=== PATIENT | female | born 1945 | race Caucasian/White ===

== ENCOUNTER 2020-10-30 14:21 | Outpatient (CLI) | payer MEDICARE, SELFPAY ==
--- NOTE | ~2020-10-30 | US_ITS ---
EXAMINATION: US art doppler w erick HERNANDEZ EXAM DATE: 10/30/2020 15:09 INDICATION: Peripheral arterial disease. Peripheral vascular disease. TECHNIQUE: Segmental pressures and plethysmographic and Doppler waveforms of the brachial and lower e xtremity arteries were obtained. Bilateral FINDINGS: Right and left brachial artery pressures of 155 mm Hg and 178 mm Hg, respectively (normal difference <= 30 mmHg). Doppler waveform in the right brachial artery is monophasic compared to the biphasic con tralateral side. Possible right subclavian artery stenosis. RIGHT LEG: The ankle-brachial index (DIANE) is 1.01 (normal >= 0.9-1). The great toe-brachial index (TBI) is 0.81 (normal >= 0.65). The lower extremity ratios, segmental pressure gradients as follows; Proximal superficial femoral artery:- Could not obtain ( mmHg). Distal superficial femoral artery: ----- 1.14 (203 mmHg). Popliteal: 1.11 (198 mmHg). Dorsalis pedis: 0.90 (160 mmHg). Posterior tibial: 1.01 (180 mmHg). (Normal gradients <= 20-30 mmHg between adjacent levels on the same leg or the same levels on the two legs). Arterial waveforms are biphasic. LEFT LEG: The ankle-brachial index (DIANE) is 1.13 (normal >= 0.9-1). The great toe-brachial index (TBI) is 0.77 (normal >= 0.65). The lower extremity ratios, segmental pressure gradients as follows; Proximal superficial femoral artery:- Could not obtain ( mmHg). Distal superficial femoral artery: ----- 1.17 (209 mmHg). Popliteal: Could not obtain ( mmHg). Dorsalis pedis: 0.90 (161 mmHg). Posterior tibial: 1.13 (201 mmHg). (Normal gradients <= 20-30 mmHg between adjacent levels on the same leg or the same levels on the two legs). Arterial waveforms are biphasic. IMPRESSION: 1. Right ankle-brachial index 1.01, normal. 2. Left ankle-brachial index 1.13, normal. 3. Possible right subclavian arterial stenosis. 4. High blood pressure. 5. Segmental pressures as above Reviewed, dictated and finalized at location B. HER DRAMATICS
== END 2020-10-30 14:22 | disposition home or self-care (01) ==
PROVIDERS: PCP Family Medicine; Visit Provider Family Medicine
DX: I73.9 Peripheral vascular disease, unspecified (principal)
CPT/HCPCS: 93923

== ENCOUNTER → 2020-12-10 12:40 | Outpatient (CLI) | payer MEDICARE, SELFPAY ==
--- NOTE | ~2020-12-10 | MM_ITS ---
EXAMINATION: MM screening [facility] BI w pratibha HISTORY: Screening TECHNIQUE: Craniocaudal and mediolateral oblique 3-D tomosynthesis images were obtained and synthetic 2-D images were generated. CAD analysis was submitted and interpreted. COMPARISON: Comparison to multiple prior studies sequentially, with oldest reviewed study dated 08/27. BREAST PARENCHYMAL COMPOSITION: The breasts are extremely dense, which lowers the sensitivity of mamm ography. FINDINGS: There is no evidence of suspicious mass, calcification, or architectural distortion to sugg est malignancy in either breast. There has been no suspicious interval change. IMPRESSION: 1. No mammographic evidence of malignancy. 2. Recommend routine screening mammography in one year. BI-RADS Category 1: Negative Reviewed, dictated and finalized at location A.
--- NOTE | ~2020-12-10 | DEXA_ITS ---
Bone Density Report Name: Yola Benavides Age: 75 Sex: Female Ethnicity: White Date of : 1945 Indication: postmenopausal; screening for osteoporosis; parental hip fracture; height loss; hysterectomy; Referring Provider: Jossue Atkinson Study: Bone densitometry was performed. Exam Date: December 10, 2020 Accession number: [id number] Bone Density: Region BMD T-score Z-score Classification AP Spine (L1-L4) 0.883 -1.5 1.0 Osteopenia Femoral Neck (Left) 0.573 -2.5 -0.3 Osteoporosis Total Hip (Left) 0.583 -2.9 -1.1 Osteoporosis Femoral Neck (Right) 0.913 0.6 2.7 Normal Total Hip (Right) 0.598 -2.8 -0.9 Osteoporosis Total Hip Mean 0.591 -2.9 -1.0 Osteoporosis World Health Organization criteria for BMD impression classify patients as: Normal (T-score at or above -1.0), Osteopenia (T-score between -1.0 and -2.5), or Osteoporosis (T-score at or below -2.5). 10-year Fracture Risk: FRAX not reported because: Some T-score for Spine Total or Hip Total or Femoral Neck at or below -2.5 Clinical Information Provided by Patient: Parent has had a hip fracture Has used the following medications: Calcium Has the following medical conditions: Hysterectomy Patient maximum height was 67.2 Menopause Age: 49 Drinks caffeinated beverages Onset of menses at age 15 Number of children 0 Missed period for more than 6 months in a row Impression: The patient has osteoporosis, based on the Left Total Hip T-score. The patient has risk factors, including: parental hip fracture. Discussion: INCREASED RISK OF FRACTURE. BONE DENSITY IS UNDESIRABLY LOW AT ONE OR MORE SKELETAL SITES, CONSISTENT WITH POSTMENOPAUSAL OSTEOPOROSIS. This patient's lowest T-score meets the World Health Organization's (WHO) criteria for osteoporosis at one or more sites (T-score -2.5 or below). In untreated patients, the risk of osteoporotic fracture increases approximately two-fold for each 1.0 SD decrease in T-score. Low bone density is not the only risk factor for fracture; also consider factors such as patient's age, frailty or poor health, risk of falling, risk of injury, previous osteoporotic fracture, family history of osteoporosis, cigarette smoking, low body weight, etc. Not everyone with low bone mineral density has osteoporosis; osteomalacia and other metabolic bone disorders should also be considered. Patients who have osteoporosis should be evaluated for specific diseases and conditions (secondary causes) that may cause or contribute to bone loss. The [place] Association [employer] Clinical Endocrinologists (AACE) and National Osteoporosis Foundation (NOF) recommend pharmacologic intervention for all postmenopausal women whose T-score is in this range. The patient should follow a healthful lifestyle (good nutrition with adequate calcium and vitamin D, and ap
== END ==
PROVIDERS: PCP Family Medicine; Visit Provider Family Medicine
DX: Z12.31 Encounter for screening mammogram for malignant neoplasm of breast (principal); M81.0 Age-related osteoporosis without current pathological fracture; Z78.0 Asymptomatic menopausal state; M85.88 Other specified disorders of bone density and structure, other site
CPT/HCPCS: 77063; 77067; 77080

== ENCOUNTER 2021-10-21 13:44 | Outpatient (CLI) | payer MEDICARE, SELFPAY ==
[2021-10-21 16:35] LABS: SARS-CoV-2 RNA PCR Positive (Negative)
== END 2021-10-21 13:45 | disposition home or self-care (01) ==
LOC: CHSLAB 13:46
PROVIDERS: PCP Family Medicine; Visit Provider Family Medicine
DX: U07.1 COVID-19 (principal); R43.2 Parageusia
CPT/HCPCS: C9803; U0003; U0005

== ENCOUNTER → 2021-11-05 08:43 | Outpatient (CLI) | payer MEDICARE, SELFPAY ==
--- NOTE | ~2021-11-05 | XR_ITS ---
EXAMINATION: XR hip RT min 3V w AP pelvis EXAM DATE: 11/05/2021 08:58 INDICATION: M25.551 - Pain in right hip . RT hip pain off and on after falling 12 yrs ago. getting wo rse x 1 week. pt states her dr took an xray at time of fall but was unsure of fracture. no prior RT h ip surg. TECHNIQUE: Right hip frontal, 'frog leg' projections for interpretation. Frontal projection pelvis. There is no prior study for comparison. FINDINGS: There is moderate symmetric bilateral hip primary osteoarthritis. Small amount of regulati on femoral head surface. Probable old impacted right subcapital femoral neck fracture. There are no a cute fractures identified. Sacrum, sacroiliac joints, sacral arcuate lines are intact. IMPRESSION: Old right subcapital femoral neck fracture. Moderate bilateral hip osteoarthritis. Reviewed, dictated and finalized at location B. E MINER BLASTING
--- NOTE | ~2021-11-05 | XR_ITS ---
XR knee RT 2V DATE: 11/05/2021 10:05 INDICATION: Right knee pain TECHNIQUE: AP and lateral views COMPARISON: None FINDINGS: There is mild enthesopathy of the superior pole of the patella at the quadriceps tendon ins ertion. There is diffuse osteopenia. There is mild loss of height of medial compartment joint space and mild periarticular spurring of the medial tibial plateau. No fracture or dislocation or joint effusion, periosteal reaction or bone destruction, radiopaque int ra-articular loose body or chondrocalcinosis. IMPRESSION: Osteopenia Mild osteoarthritis at the medial compartment Reviewed, dictated and finalized at location A. BALER
== END ==
PROVIDERS: PCP Family Medicine; Visit Provider Family Medicine
DX: M85.861 Other specified disorders of bone density and structure, right lower leg (principal); M17.11 Unilateral primary osteoarthritis, right knee; M16.0 Bilateral primary osteoarthritis of hip
CPT/HCPCS: 73502; 73560

== ENCOUNTER 2022-11-19 08:19 | Outpatient (CLI) | payer MEDICARE, SELFPAY ==
[2022-11-19 20:35] LABS: Basophils Absolute Auto 0.1 K/mm3 (0.0-0.1); Basophils Percent Auto 1.2 % (0.2-1.2); Eosinophils Absolute Auto 0.4 K/mm3 (0-0.3); Hematocrit 39.3 % (37.0-47.0); Hemoglobin 12.7 g/dL (12.0-15.0); Lymphocytes Absolute Auto 1.22 K/mm3 (0.9-3.2); Lymphocytes Percent Auto 28.8 % (18.3-44.2); Mean Corpuscular HGB Conc 32.3 g/dl (32-36); Mean Corpuscular Hemoglobin 30.7 pg (26-34); Mean Corpuscular Volume 94.9 fl (80-100); Mean Platelet Volume 10.1 fl (7.4-10.4); Monocytes Absolute Auto 0.5 K/mm3 (0.1-0.6); Monocytes Percent Auto 10.6 % (2.6-8.5); Neutrophils Absolute Auto 2.1 K/mm3 (1.3-6.7); Neutrophils Percent Auto 50.4 % (45.5-73.1); Platelet Count Result 221 k/mm3 (150-375); Red Blood Count 4.14 M/mm3 (4.2-5.4); Red Cell Distribution Width 14.4 % (11.5-14.5); White Blood Count 4.2 K/mm3 (4.5-10.0)
[2022-11-19 21:33] LABS: Cholesterol 224 mg/dL (0-200); HDL Direct 66 mg/dL; Triglycerides 84 mg/dL (<150)
[2022-11-19 21:47] LABS: LDL Cholesterol Direct 102 mg/dL
[2022-11-20 04:35] LABS: Vitamin D 25 Hydroxy 23.3 ng/mL
== END 2022-11-19 08:20 | disposition home or self-care (01) ==
LOC: ANHGOSHLAB 08:21
PROVIDERS: PCP Family Medicine; Visit Provider Family Medicine
DX: E78.5 Hyperlipidemia, unspecified (principal); E53.8 Deficiency of other specified B group vitamins; E55.9 Vitamin D deficiency, unspecified; I10 Essential (primary) hypertension
CPT/HCPCS: 36415; 80061; 82306; 82607; 85025

== ENCOUNTER → 2023-01-26 13:17 | Outpatient (CLI) | payer MEDICARE, SELFPAY ==
--- NOTE | ~2023-01-26 | MM_ITS ---
EXAMINATION: MM screening [facility] BI w pratibha HISTORY: Screening mammogram TECHNIQUE: Craniocaudal and mediolateral oblique 3-D tomosynthesis images were obtained and synthetic 2-D images were generated. CAD analysis was submitted and interpreted. COMPARISON: 12/11/2019, 07/13/2017 BREAST PARENCHYMAL COMPOSITION: The breasts are extremely dense, which lowers the sensitivity of mamm ography. FINDINGS: No suspicious mass, calcification, or architectural distortion are identified in either curly ast to suggest malignancy. There has been no suspicious interval change. IMPRESSION: 1. No mammographic evidence of malignancy. 2. Recommend routine screening mammography in one year. BI-RADS Category 1: Negative Reviewed, dictated and finalized at location A.
== END ==
PROVIDERS: PCP Family Medicine; Visit Provider Family Medicine
DX: Z12.31 Encounter for screening mammogram for malignant neoplasm of breast (principal)
CPT/HCPCS: 77063; 77067

== ENCOUNTER 2023-02-13 12:37 | Emergency (ER) | payer MEDICARE, SELFPAY ==
--- NOTE | ~2023-02-13 | CT_ITS ---
EXAMINATION: CT pelvis wo con DATE: 02/13/2023 13:36 INDICATION: Pelvic pain, initial encounter TECHNIQUE: Computed tomography (CT) of the pelvis was performed without intravenous contrast. The dos e-length product (DLP) was 224.84 mGy-cm. Automated exposure control and iterative reconstruction franklyn hnique were employed. COMPARISON: None FINDINGS: There is an acute, nondisplaced transverse fracture through the S3 vertebral body which inv olves the posterior elements. There is mild presacral soft tissue swelling. No additional fracture is identified. There is mild osteoarthritis of the hips. There are no pathologically enlarged pelvic ly mph nodes. IMPRESSION: 1. Acute transverse fracture through the S3 vertebral body which appears to involve the posterior domo ments. Reviewed, dictated and finalized at location A. IMPRESSION: 1. Acute transverse fracture through the S3 vertebral body which appears to inv olve the posterior elements.
--- NOTE | ~2023-02-13 | CT_ITS ---
EXAMINATION: CT lumbar spine wo con DATE: 02/13/2023 13:36 INDICATION: Low back pain TECHNIQUE: Computed tomography (CT) of the lumbar spine was performed without intravenous contrast. T he dose-length product (DLP) was 316.52 mGy-cm. Iterative reconstruction was used. COMPARISON: None FINDINGS: There are 3 mm of anterolisthesis of L3 on L4 and L4 on L5. The vertebral body heights are maintained. There is moderate loss of intervertebral disc space height throughout the lumbar spine. N o fracture is identified. There is moderate to severe multilevel facet and uncovertebral joint osteoa rthritis. There are 20 degrees of lumbar levoscoliosis. IMPRESSION: 1. Severe lumbar spondylosis without acute findings. Reviewed, dictated and finalized at location A.
--- NOTE | ~2023-02-13 | XR_ITS ---
EXAMINATION: XR chest 2V DATE: 02/13/2023 13:52 INDICATION: Right-sided chest pain TECHNIQUE: AP and lateral views of the chest are obtained. COMPARISON: None available FINDINGS: The lungs are free of acute opacities. No pleural effusion or pneumothorax. The cardiomedia stinal silhouette is normal. There is severe thoracic spondylosis. IMPRESSION: 1. No acute cardiopulmonary abnormality. Reviewed, dictated and finalized at location A.
--- NOTE | ~2023-02-13 | XR_ITS ---
EXAM: XR hip RT 2V w AP pelvis DATE: 02/13/2023 13:52 HISTORY: right hip pain AFTER, HAS HAD HX OF PREVIOUS FALL YEARS AGO . COMPARISON: 11/05/2021. FINDINGS: Decreased mineralization. Severe osteitis pubis. Moderate degenerative change in the right hip and right SI joint. No fracture or dislocation. Old healed subcapital fracture of the right femo ral neck. IMPRESSION: No acute osseous finding in the right hip or pelvis. Reviewed, dictated and finalized at location K.
--- NOTE | ~2023-02-13 | XR_ITS ---
EXAM: XR shoulder RT min 2V DATE: 02/13/2023 13:52 HISTORY: pain to shoulder LATERAL PAIN AFTER FALL . COMPARISON: None available. FINDINGS: Decreased mineralization. No fracture or dislocation. No lytic or blastic lesion. Mild acr omioclavicular and moderate glenohumeral joint degenerative change. No erosion or periosteal change. Soft tissues within normal limits. IMPRESSION: No acute osseous finding in the right shoulder. Reviewed, dictated and finalized at location K.
[2023-02-13 12:42] VITALS: BP 147/64; PULSE 68; RESP 14; TEMP 36.8; O2SAT 100
--- NOTE | 2023-02-13 13:24 | ED.GENADULT ---
HPI - General Adult General Chief complaint: Fall Stated complaint: fall from tailgate Time Seen by Provider: 02/13/23 12:51 History of Present Illness HPI narrative: Yola Benavides is a 77 y/o female who presents with reports of a fall yesterday at around 1999. She reports she was putting a large item in the back of a pickup truck on her hands and knees. She then went to step off of the tailgate and missed her foot stool and fell landing on her bottom. She did not hit her head/ no LOC -she is not on any blood thinners. She reports she was immediately able to get up and ambulate. She complains of pain to her lower back/ coccyx area and right hip. She denies any numbness tingling to her extremities/no loss of bowel or bladder. She reports that the pain has progressively worsened and it kept her up last night she took a naproxen last night with a little relief. Related Data Home Medications Medication Instructions Recorded Confirmed naproxen sodium 220 mg tablet 220 mg PO DAILY 10/14/21 11/10/22 (Flanax (naproxen)) calcium carbonate 600 mg calcium 600 mg PO BID 11/10/22 11/10/22 (1,500 mg) tablet (Calcium) multivitamin 1 tablet PO DAILY 11/10/22 11/10/22 vit C 250 mg-vit E 200 unit-zinc 1 cap PO DAILY 11/10/22 11/10/22 ox 12.5 [id number] capsule (ICaps AREDS2) Allergies Allergy/AdvReac Type Severity Reaction Status Date / Time No Known Allergies Allergy Mild Verified 02/13/23 12:38 Review of Systems Review of Systems: Patient CONSTITUTIONAL: Denies fever, chills, or sweats. EYES: Denies visual changes, redness, or discharge. ENT: Denies rhinorrhea, congestion, sore throat, or otalgia. CARDIOVASCULAR: Denies chest pain, palpitations, or edema. RESPIRATORY: Denies cough or dyspnea. GASTROINTESTINAL: Denies abdominal pain, nausea, vomiting, or diarrhea. GENITOURINARY: Denies dysuria or hematuria. SKIN: Denies rash or itching. MUSCULOSKELETAL: Complains of lower back pain/ right hip pain/ buttock pain/ and reports of chronic right shoulder pain that might be a little worse now thinks it might of been chris NEUROLOGIC: Denies headache, numbness, dizziness, or weakness. PSYCHIATRIC: Denies anxiety or depression. [facility] Past Medical History Medical History Dyslipidemia Essential (primary) hypertension Hypothyroidism (acquired) Osteoarthritis Osteoporosis without current pathological fracture Surgical History Surgical History History of hysterectomy 2007 History of surgery on wrist 2008 Left ORIF due to fracture 2009 - Right ORIF due to fracture Social History Social History Smoking status: Never smoker Alcohol intake: current Substance use: never Substance use type: does not use Lack of Transportation: No Lack of Food: Never True Current Housing: I Have Housing Concerned About Future Housing: No Difficulty Paying Gas/Electric Bills: No Difficulty Paying for Meds: No Currently Unemployed: No Education: Master's Degree or Higher Difficulty w/ Childcare or Family Care: No Living arrangements: with family Additional living arrangements comments: Occupation/Education: retired Gender identity (if verbalized by the patient): Female Sexual Orientation (if Verbalized by the Patient): Straight or Heterosexual Spiritual care concerns: No Exam Narrative: GENERAL: Well-appearing, well-nourished, and in no acute distress. HEAD: Normocephalic, atraumatic. EYES: PERRLA and EOMI. ENT: Nares clear, no rhinorrhea or epistaxis. Mucous membranes moist. Oropharynx without tonsillar hypertrophy exudate or other lesions. Bilateral TMs pearly spencer nonbulging NECK: Supple. No adenopathy or masses. No carotid bruits or JVD CHEST: Clear to auscultation. No respiratory distress. No wheezes rales or rhon
[2023-02-13] MEDS: CYCLOBENZAPRINE HCL 10 MG TABLET PO (13:59)
[2023-02-13] MEDS: LIDOCAINE 5% PATCH 2 PATCH TRANSDERM (13:59)
[2023-02-13] MEDS: MELOXICAM 7.5 MG TABLET PO (13:59)
[2023-02-13 16:36] VITALS: BP 138/76
== END 2023-02-13 16:37 | disposition home or self-care (01) ==
PROVIDERS: Emergency Provider Nurse Practitioner Family; PCP Family Medicine
DX: S32.16XA Type 3 fracture of sacrum, initial encounter for closed fracture (principal); E78.5 Hyperlipidemia, unspecified; I10 Essential (primary) hypertension; E03.9 Hypothyroidism, unspecified; M19.90 Unspecified osteoarthritis, unspecified site; M81.0 Age-related osteoporosis without current pathological fracture; Z90.710 Acquired absence of both cervix and uterus; M47.816 Spondylosis without myelopathy or radiculopathy, lumbar region; W17.89XA Other fall from one level to another, initial encounter
CPT/HCPCS: 71046; 72131; 72192; 73030; 73502; 99284; A9270

== ENCOUNTER 2023-05-11 11:22 | Outpatient (CLI) | payer MEDICARE, SELFPAY ==
[2023-05-11 19:37] LABS: Vitamin D 25 Hydroxy 74.2 ng/mL
[2023-05-11 19:40] LABS: Alanine Aminotransferase 24 U/L (6-35); Albumin Level 4.5 g/dL (3.5-5.1); Alkaline Phosphatase 90 U/L (38-126); Anion Gap 5 mmol/L (8-16); Aspartate Amino Transferase 32 U/L (14-36); Bilirubin,Total 0.4 mg/dL (0.2-1.3); Blood Urea Nitrogen 15 mg/dL (7-17); Calcium 9.1 mg/dL (8.4-10.2); Carbon Dioxide 33 mmol/L (22-30); Chloride 97 mmol/L (98-107); Estimated Glomerular Filt Rate > 60; Glucose 79 mg/dL (65-110); Potassium 3.9 mmol/L (3.4-5.0); Sodium 135 mmol/L (137-145)
== END 2023-05-11 11:23 | disposition home or self-care (01) ==
PROVIDERS: PCP Family Medicine; Visit Provider Family Medicine
DX: E55.9 Vitamin D deficiency, unspecified (principal); I10 Essential (primary) hypertension; E03.9 Hypothyroidism, unspecified
CPT/HCPCS: 36415; 80053; 82306; 84443

== ENCOUNTER → 2023-08-27 07:54 | Outpatient (CLI) | payer MEDICARE, SELFPAY ==
--- NOTE | ~2023-08-27 | US_ITS ---
US soft tissue groin RT 08/27/2023 08:27 Indication: Abdominal wall mass Procedure: High-resolution ultrasound of the left lower abdominal wall soft tissues Comparison: CT dated 02/13/2023 Findings: No definitive hernia identified. No discrete walled off fluid collection or mass. No lympha denopathy identified Impression: 1: No definitive inguinal hernia visualized. No discrete mass. Reviewed, dictated and finalized at location B. WARE TEST TECHNICIAN Impression: 1: No definitive inguinal hernia visualized. No discrete mass.
== END ==
PROVIDERS: PCP Family Medicine; Visit Provider Nurse Practitioner Family
DX: R22.2 Localized swelling, mass and lump, trunk (principal)
CPT/HCPCS: 76882

== ENCOUNTER → 2023-09-01 08:14 | Outpatient (CLI) | payer MEDICARE, SELFPAY ==
--- NOTE | ~2023-09-01 | CT_ITS ---
Non-contrast CT scan of the Abdomen and Pelvis Clinical indication: Swelling, mass, possible hernia Technique: 2.5 mm axial scans were obtained through the abdomen and pelvis without intravenous or or al contrast. Dose reduction technique was used on this scan by utilizing automated exposure control a nd iterative reconstruction technique. The dose-length product (DLP) was 279.49 mGy-cm. COMPARISON: 02/13/2023 Findings: Images through the lung bases reveal no abnormalities. Left hepatic lobe cysts are present. Possible mild left hydronephrosis, similar to prior exam. The sp tera, pancreas, gallbladder, right kidney, and adrenals appear normal. There are atherosclerotic calc ifications of the aorta. There is no evidence of bowel obstruction. Images through the pelvis were performed. There is no evidence of ascites or lymphadenopathy. Urinary bladder unremarkable. No pelvic mass seen. Impression: Possible mild left hydronephrosis, similar to prior exam. No other significant findings. No hernia identified. Reviewed, dictated and finalized at [facility]. L FRONT DESK AGENT Impression: Possible mild left hydronephrosis, similar to prior exam. No other significant findings. No hernia identified.
== END ==
PROVIDERS: PCP Family Medicine; Visit Provider Nurse Practitioner Family
DX: R19.09 Other intra-abdominal and pelvic swelling, mass and lump (principal)
CPT/HCPCS: 74176

== ENCOUNTER → 2023-09-08 12:19 | Outpatient (CLI) | payer MEDICARE, SELFPAY ==
--- NOTE | ~2023-09-08 | DEXA_ITS ---
Bone Density Report Name: JEANNIE KIRK Age: 78 Sex: Female Ethnicity: White Date of : 1945 Indication: postmenopausal osteoporosis; parental hip fracture; height loss; prior fracture; hysterectomy; Referring Provider: Jossue Atkinson Study: Bone densitometry was performed. Exam Date: September 08, 2023 Accession number: [id number] Bone Density: Region BMD T-score Z-score Classification AP Spine (L1-L4) 0.837 -1.9 0.7 Osteopenia Femoral Neck (Left) 0.558 -2.6 -0.4 Osteoporosis Total Hip (Left) 0.594 -2.9 -0.8 Osteoporosis Femoral Neck (Right) 0.963 1.0 3.3 Normal Total Hip (Right) 0.627 -2.6 -0.6 Osteoporosis Total Hip Mean 0.611 -2.8 -0.7 Osteoporosis World Health Organization criteria for BMD impression classify patients as: Normal (T-score at or above -1.0), Osteopenia (T-score between -1.0 and -2.5), or Osteoporosis (T-score at or below -2.5). 10-year Fracture Risk: FRAX not reported because: Some T-score for Spine Total or Hip Total or Femoral Neck at or below -2.5 Previous Exams: Region Exam Age BMD T-score BMD Change BMD Change Date g/cm2 vs Baseline vs Previous AP Spine(L1-L4) 09/08/2023 78 0.837 -1.9 -0.045* -0.045* 12/10/2020 75 0.883 -1.5 Total Hip(Left) 09/08/2023 78 0.594 -2.9 0.011 0.011 12/10/2020 75 0.583 -2.9 Total Hip(Right) 09/08/2023 78 0.627 -2.6 0.029* 0.029* 12/10/2020 75 0.598 -2.8 *Denotes significance at 95% confidence level, LSC for AP Spine = 0.022 g/cm2, LSC for Total Hip = 0.027 g/cm2 Clinical Information Provided by Patient: Has had a low trauma fracture Parent has had a hip fracture Has used the following medications: Vitamin D, Calcium, MTV Has the following medical conditions: Hysterectomy Patient maximum height was 67.2 Menopause Age: 49 No regular weight bearing exercise Drinks caffeinated beverages Onset of menses at age 15 Number of children 0 Missed period for more than 6 months in a row Impression: The patient has established osteoporosis, based on the Left Total Hip T-score and the existence of a prior fracture. The patient has risk factors, including: parental hip fracture, previous fracture. The BMD for the AP Spine(L1-L4) decreased, changing by -0.045 since the last DXA exam. Discussion: HIGH RISK OF FRACTURE. BONE DENSITY IS UNDESIRABLY LOW AT ONE OR MORE SKELETAL SITES, CONSISTENT WITH POSTMENOPAUSAL OSTEOPOROSIS. This
== END ==
PROVIDERS: PCP Family Medicine; Visit Provider Family Medicine
DX: Z78.0 Asymptomatic menopausal state (principal); M85.88 Other specified disorders of bone density and structure, other site; M81.0 Age-related osteoporosis without current pathological fracture
CPT/HCPCS: 77080

== ENCOUNTER 2023-11-16 08:47 | Outpatient (CLI) | payer MEDICARE, SELFPAY ==
[2023-11-16 14:23] LABS: Basophils Absolute Auto 0.1 K/mm3 (0.0-0.1); Basophils Percent Auto 1.3 % (0.2-1.2); Eosinophils Absolute Auto 0.3 K/mm3 (0-0.3); Eosinophils Percent Auto 6.9 % (0-4.4); Hematocrit 38.9 % (37.0-47.0); Immature Granulocyte Absolute 0.01 K/mm3 (0.00-0.031); Immature Granulocyte Percent A 0.2 % (0-0.5); Lymphocytes Absolute Auto 1.03 K/mm3 (0.9-3.2); Lymphocytes Percent Auto 22.9 % (18.3-44.2); Mean Corpuscular HGB Conc 30.8 g/dl (32-36); Mean Corpuscular Hemoglobin 30.7 pg (26-34); Mean Corpuscular Volume 99.5 fl (80-100); Mean Platelet Volume 10.1 fl (7.4-10.4); Monocytes Absolute Auto 0.5 K/mm3 (0.1-0.6); Neutrophils Absolute Auto 2.6 K/mm3 (1.3-6.7); Neutrophils Percent Auto 58.7 % (45.5-73.1); Platelet Count Result 219 k/mm3 (150-375); Red Blood Count 3.91 M/mm3 (4.2-5.4); Red Cell Distribution Width 13.7 % (11.5-14.5); White Blood Count 4.5 K/mm3 (4.5-10.0)
[2023-11-16 14:56] LABS: Alanine Aminotransferase 18 U/L (6-35); Albumin Level 4.2 g/dL (3.5-5.1); Alkaline Phosphatase 97 U/L (38-126); Anion Gap 5 mmol/L (8-16); Aspartate Amino Transferase 59 U/L (14-36); Bilirubin,Total 0.6 mg/dL (0.2-1.3); Blood Urea Nitrogen 17 mg/dL (7-17); Calcium 9.3 mg/dL (8.4-10.2); Carbon Dioxide 30 mmol/L (22-30); Chloride 100 mmol/L (98-107); Cholesterol 217 mg/dL (0-200); Estimated Glomerular Filt Rate > 60; Glucose 80 mg/dL (65-110); HDL Direct 77 mg/dL; Potassium 3.9 mmol/L (3.4-5.0); Sodium 135 mmol/L (137-145); Triglycerides 84 mg/dL (<150)
[2023-11-16 15:07] LABS: LDL Cholesterol Direct 105 mg/dL
[2023-11-16 15:30] LABS: Vitamin D 25 Hydroxy 62.4 ng/mL
[2023-11-17 07:44] LABS: Free T4 Free Thyroxine Reflex 1.06 ng/dL (0.78-2.19)
[2023-11-17 08:42] LABS: Total Triiodothyronine (T3) 1.22 NG/ML (0.97-1.69)
== END 2023-11-16 08:48 | disposition home or self-care (01) ==
PROVIDERS: PCP Family Medicine; Visit Provider Family Medicine
DX: E03.9 Hypothyroidism, unspecified (principal); E53.8 Deficiency of other specified B group vitamins; I10 Essential (primary) hypertension; E55.9 Vitamin D deficiency, unspecified; E78.5 Hyperlipidemia, unspecified
CPT/HCPCS: 36415; 80053; 80061; 82306; 82607; 84439; 84443; 84480; 85025

== ENCOUNTER 2024-05-10 11:31 | Outpatient (CLI) | payer MEDICARE, SELFPAY ==
[2024-05-10 13:00] LABS: Alanine Aminotransferase 23 U/L (6-35); Albumin Level 4.4 g/dL (3.5-5.1); Alkaline Phosphatase 93 U/L (38-126); Anion Gap 6 mmol/L (4-12); Aspartate Amino Transferase 56 U/L (14-36); Bilirubin,Total 0.5 mg/dL (0.2-1.3); Blood Urea Nitrogen 16 mg/dL (7-17); Calcium 9.8 mg/dL (8.4-10.2); Carbon Dioxide 32 mmol/L (22-30); Chloride 94 mmol/L (98-107); Estimated Glomerular Filt Rate > 60; Glucose 82 mg/dL (65-110); Potassium 4.1 mmol/L (3.4-5.0); Sodium 132 mmol/L (137-145)
== END 2024-05-10 11:32 | disposition home or self-care (01) ==
PROVIDERS: PCP Family Medicine; Visit Provider Family Medicine
DX: E03.9 Hypothyroidism, unspecified (principal); I10 Essential (primary) hypertension
CPT/HCPCS: 36415; 80053; 84443

== ENCOUNTER 2024-11-22 09:15 | Outpatient (CLI) | payer MEDICARE, SELFPAY ==
--- OUTSIDE RECORDS SUMMARY | 2024-11-22 10:00 | XMS_ITS | Clinical Summary ---
Author Organization [facility] Address [address], [address] [address] Phone Care Team Providers Care Machine Cleaner Name Role Phone Dinorah Atkinson MD Primary Care Provider Medications polyethylene glycol (MIRALAX) Powder Mix the entire bottle with 64 oz of a clear liquid. Use as directed by the office for colonoscopy prep. 255 g 7 Active Social History Tobacco Use Types Packs/Day Years Used Date Smoking Tobacco: Never Assessed Comments Unknown Sex and Gender Information Value Date Recorded Sex Assigned at Not on file Legal Sex Female 10:50 PM CDT Gender Identity Not on file Sexual Orientation Not on file Plan of Treatment Health Maintenance Due Date Last Done Comments DEXA Bone Density 1945 Hepatitis C Virus (HCV) Screening 1945 TdaP Immunization 1945 Pneumococcal Immunization (5 0+ years) (1 of 1 - PCV) 1994 Zoster Immunization (1 of 2) 1994 Respiratory Syncytial Virus (RSV) Immunization (Adult) (1 - 1-dose 75+ series) 2019 Influenza Immunization (#1) 2024 SARS-COV-2 Immunization ( season) 2024 Colonoscopy High Risk Discontinued 11/03/2017 Colonoscopy Discontinued 11/03/2017 Colorectal Cancer Screening Discontinued Cologuard Discontinued Hepatitis B Immunization Aged Out No longer eligible based on patient's age to complete this topic Immunochemical Fecal Occult Blood Discontinued Meningococcal Immunization (ACWY) Aged Out No longer eligible based on patient's age to complete this topic Rotavirus Immunization Aged Out No lo nger eligible based on patient's age to complete this topic Procedures Procedure Name Priority Date/Time Associated Diagnosis Comments COLONOSCOPY Routine 11/03/2017 from Last 3 Months or Most Recently Relevant to Health Maintenance Results * COLONOSCOPY (11/03/2017) Evgeny Day DO PROCEDURE/MINOR SURGICAL ORDERA BLES Final Result from Last 3 Months or Most Recently Relevant to Health Maintenance Insurance MEDICARE C [facility] on file Care Teams Machine Cleaner Relationship Specialty Start Date End Date Dinorah Atkinson MD PCP - General Family Medicine 11/08/17
[2024-11-22 10:37] LABS: Alanine Aminotransferase 20 U/L (6-35); Albumin Level 4.3 g/dL (3.5-5.1); Alkaline Phosphatase 108 U/L (38-126); Anion Gap 7 mmol/L (4-12); Aspartate Amino Transferase 32 U/L (14-36); Bilirubin,Total 0.6 mg/dL (0.2-1.3); Blood Urea Nitrogen 14 mg/dL (7-17); Calcium 9.4 mg/dL (8.4-10.2); Carbon Dioxide 30 mmol/L (22-30); Chloride 100 mmol/L (98-107); Cholesterol 217 mg/dL (0-200); Estimated Glomerular Filt Rate > 60; Glucose 84 mg/dL (65-110); HDL Direct 73 mg/dL; Potassium 4.1 mmol/L (3.4-5.0); Sodium 137 mmol/L (137-145); Triglycerides 76 mg/dL (<150)
[2024-11-22 10:41] LABS: Basophils Absolute Auto 0.1 K/mm3 (0.0-0.1); Basophils Percent Auto 0.9 % (0.2-1.2); Eosinophils Absolute Auto 0.3 K/mm3 (0-0.3); Eosinophils Percent Auto 4.8 % (0-4.4); Hematocrit 40.2 % (37.0-47.0); Hemoglobin 12.9 g/dL (12.0-15.0); Immature Granulocyte Absolute 0.01 K/mm3 (0.00-0.031); Immature Granulocyte Percent A 0.2 % (0-0.5); Lymphocytes Absolute Auto 1.01 K/mm3 (0.9-3.2); Lymphocytes Percent Auto 18.8 % (18.3-44.2); Mean Corpuscular HGB Conc 32.1 g/dl (32-36); Mean Corpuscular Volume 93.5 fl (80-100); Mean Platelet Volume 9.7 fl (7.4-10.4); Monocytes Absolute Auto 0.5 K/mm3 (0.1-0.6); Monocytes Percent Auto 9.7 % (2.6-8.5); Neutrophils Absolute Auto 3.5 K/mm3 (1.3-6.7); Neutrophils Percent Auto 65.6 % (45.5-73.1); Platelet Count Result 232 k/mm3 (150-375); Red Cell Distribution Width 13.8 % (11.5-14.5); White Blood Count 5.4 K/mm3 (4.5-10.0)
[2024-11-22 10:49] LABS: LDL Cholesterol Direct 100 mg/dL
[2024-11-22 20:55] LABS: Vitamin D 25 Hydroxy 68.8 ng/mL
[2024-11-22 20:57] LABS: Hemoglobin A1C 5.6 % (<5.7)
[2024-11-22 21:48] LABS: Free T4 Free Thyroxine Reflex 1.26 ng/dL (0.78-2.19)
[2024-11-22 22:33] LABS: Total Triiodothyronine (T3) 1.29 NG/ML (0.97-1.69)
== END 2024-11-22 09:16 | disposition home or self-care (01) ==
PROVIDERS: PCP Family Medicine; Visit Provider Family Medicine
DX: E78.5 Hyperlipidemia, unspecified (principal); I10 Essential (primary) hypertension; R73.9 Hyperglycemia, unspecified; E03.9 Hypothyroidism, unspecified; E53.8 Deficiency of other specified B group vitamins; E55.9 Vitamin D deficiency, unspecified
CPT/HCPCS: 36415; 80053; 80061; 82306; 82607; 83036; 84439; 84443; 84480; 85025

== ENCOUNTER 2024-11-28 08:30 | Outpatient (CLI) | payer MEDICARE, SELFPAY ==
--- NOTE | ~2024-11-28 | MM_ITS ---
EXAMINATION: MM screening ortiz BI w pratibha HISTORY: Screening mammogram TECHNIQUE: Craniocaudal and mediolateral oblique 3-D tomosynthesis images were obtained and synthetic 2-D images were generated. CAD analysis was submitted and interpreted. COMPARISON: 01/26/2023, 12/10/2020 BREAST PARENCHYMAL COMPOSITION:Dense: The breasts are extremely dense, which lowers the sensitivity o f mammography. FINDINGS: No suspicious mass, calcification, or architectural distortion are identified in either curly ast to suggest malignancy. There has been no suspicious interval change. IMPRESSION: No mammographic evidence of malignancy. Recommend routine screening mammography in one year. BI-RADS Category 1: Negative Reviewed, dictated and finalized at location M. RUNNER
--- OUTSIDE RECORDS SUMMARY | 2024-11-28 09:01 | XMS_ITS | Clinical Summary ---
Author Organization [facility] Address [address], [address] [address] Phone Care Team Providers Care Podiatry Teacher Name Role Phone Dinorah Atkinson MD Primary [...] Relevant to Health Maintenance Insurance MEDICARE C [facility] on file Care Teams Podiatry Teacher Relationship Specialty Start Date End Date Dinorah Atkinson MD PCP - General Family Medicine 11/08/17
== END 2024-11-28 08:31 | disposition home or self-care (01) ==
LOC: CHSIMG 08:31
PROVIDERS: PCP Family Medicine; Visit Provider Family Medicine
DX: Z12.31 Encounter for screening mammogram for malignant neoplasm of breast (principal)
CPT/HCPCS: 77063; 77067

== ENCOUNTER 2025-02-25 13:00 | Emergency (ER) | payer MEDICARE, SELFPAY ==
--- NOTE | ~2025-02-25 | XR_ITS ---
EXAMINATION: XR chest 2V DATE: 02/25/2025 15:09 INDICATION: Fever TECHNIQUE: PA and lateral views of the chest were obtained. COMPARISON: Chest radiograph dated 02/13/2023 FINDINGS: Hyperexpansion of the lungs. Small left pleural effusion with blunting at the left costophrenic angle and posterior sulcus. No other airspace opacities, pulmonary edema, pneumothorax or right-sided pleu ral effusion. Mild cardiomegaly. Upper lumbar levoscoliosis with compensatory mild thoracic dextrocur vature. IMPRESSION: 1. Small left pleural effusion. 2. Mild cardiomegaly. 3. Hyperexpansion lungs suggestive but not diagnostic of COPD. Reviewed, dictated and finalized at location A.
[2025-02-25 14:07] VITALS: BP 150/79; PULSE 83; RESP 16; TEMP 38.2; O2SAT 98
[2025-02-25 14:38] LABS: EDUAAPPEAR Clear; EDUABILI Negative (Negative); EDUABLOOD 3+ (Negative); EDUACOLOR1 Yellow; EDUAGLUCOSE Negative (Negative); EDUAKETONE Negative (Negative); EDUALEUKO Trace (Negative); EDUANITRATE Negative (Negative); EDUAPROTEIN 2+ (Negative); EDUASPGRAVITY 1.025; EDUAUROBILI 0.2
[2025-02-25 14:48] LABS: EDCOVIDSCREEN Negative (Negative); EDINFLUASCREEN Negative (Negative); EDINFLUBSCREEN Negative (Negative)
--- NOTE | 2025-02-25 14:52 | ED.GENADULT ---
HPI - General Adult General Chief complaint: Unspecified Stated complaint: CHILLS/DECREASED APPETITE/TIRED Related Data Home Medications ?Medication ?Instructions ?Recorded ?Confirmed ?Last Taken ?Type calcium carbonate (Calcium 600) 600 mg PO BID 11/10/22 11/16/24 Unknown History multivitamin 1 tablet PO DAILY 11/10/22 11/16/24 Unknown History vit C 250 mg-vit E 200 unit-zinc 1 cap PO DAILY 11/10/22 11/16/24 Unknown History ox 12.5 [id number]-pmvvxs-zeax capsule (ICaps AREDS2) Allergies Allergy/AdvReac Type Severity Reaction Status Date / Time No Known Allergies Allergy Mild Verified 11/16/24 10:30 [facility] Past Medical History Medical History Fracture, sacrum/coccyx Osteoarthritis Essential (primary) hypertension Hypothyroidism (acquired) Dyslipidemia Osteoporosis without current pathological fracture Surgical History Surgical History History of surgery on wrist 2007 Left ORIF due to fracture 2009 - Right ORIF due to fracture History of hysterectomy 2007 Social History Social History Smoking status: Never smoker Alcohol intake: current Substance use: never Substance use type: does not use Lack of Transportation: No Lack of Food: Never True Current Housing: I Have Housing Concerned About Future Housing: No Difficulty Paying Gas/Electric Bills: No Difficulty Paying for Meds: No Currently Unemployed: No Education: Master's Degree or Higher Difficulty w/ Childcare or Family Care: No Living arrangements: with family Additional living arrangements comments: Occupation/Education: retired Gender identity (if verbalized by the patient): Female Sexual Orientation (if Verbalized by the Patient): Straight or Heterosexual Spiritual care concerns: No Course Vital Signs Vital signs: Vital Signs Temperature 38.2 C H 02/25/25 14:07 Pulse Rate 83 02/25/25 14:07 Respiratory Rate 16 02/25/25 14:07 Blood Pressure 150/79 H 02/25/25 14:07 Pulse Oximetry 98 02/25/25 14:07 Temperature 38.2 C H 02/25/25 14:07 Pulse Rate 83 02/25/25 14:07 Respiratory Rate 16 02/25/25 14:07 Blood Pressure 150/79 H 02/25/25 14:07 Pulse Oximetry 98 02/25/25 14:07 Medical Decision Making Vital Signs Vital Signs: Vital Signs Temperature 38.2 C H 02/25/25 14:07 Pulse Rate 83 02/25/25 14:07 Respiratory Rate 16 02/25/25 14:07 Blood Pressure 150/79 H 02/25/25 14:07 Pulse Oximetry 98 02/25/25 14:07 Temperature 38.2 C H 02/25/25 14:07 Pulse Rate 83 02/25/25 14:07 Respiratory Rate 16 02/25/25 14:07 Blood Pressure 150/79 H 02/25/25 14:07 Pulse Oximetry 98 02/25/25 14:07 Lab Data Labs: Lab Results 02/25/25 02/25/25 Range/Units 14:27 14:46 POC Urine Color Yellow POC Urine Clarity Clear POC Urine pH 6.0 POC Ur Specif [place] 1.025 POC Urine Protein 2+ (Negative) POC Ur Glucose (UA) Negative (Negative) POC Urine Ketones Negative (Negative) POC Urine Blood 3+ (Negative) POC Urine Nitrite Negative (Negative) POC Urine Bilirubin Negative (Negative) POC Urine Urobilinogen 0.2 POC U Leukocyte Esteras Trace (Negative) POC Influenza A Ag Negative (Negative) POC Influenza B Ag Negative (Negative) POC SARS CoV-2 Ag Negative (Negative) Discharge Plan Discharge Patient Language: [place] Prescriptions: No Action multivitamin Tablet 1 tablet PO DAILY calcium carbonate [Calcium 600] 600 mg calcium (1,500 mg) tablet 600 mg PO BID ICaps AREDS2 250 mg-200 unit -12.5 mg-1 mg capsule 1 cap PO DAILY cholecalciferol (vitamin D3) 50 mcg (2,000 unit) tablet 50 mcg PO DAILY Qty: 90 3RF levothyroxine 50 mcg tablet 50 mcg PO DAILY Qty: 90 1RF amlodipine 5 mg tablet 5 mg PO DAILY Qty: 90 1RF Follow-up/Referrals: Jossue Atkinson MD [Primary Care Provider] -
[2025-02-25 15:09] VITALS: BP 159/88; PULSE 75; RESP 20; TEMP 38.2; O2SAT 96
== END 2025-02-25 13:53 | disposition home or self-care (01) ==
PROVIDERS: Emergency Provider Nurse Practitioner Family; PCP Family Medicine
DX: J90 Pleural effusion, not elsewhere classified (principal); I42.9 Cardiomyopathy, unspecified; B34.9 Viral infection, unspecified; R11.0 Nausea; Z20.822 Contact with and (suspected) exposure to COVID-19; E03.9 Hypothyroidism, unspecified; Z85.828 Personal history of other malignant neoplasm of skin
CPT/HCPCS: 71046; 81003; 87086; 87426; 87804; 99213; G0463

== ENCOUNTER 2025-02-28 10:55 | Outpatient (CLI) | payer MEDICARE, SELFPAY ==
--- OUTSIDE RECORDS SUMMARY | 2025-02-28 11:01 | XMS_ITS | Clinical Summary ---
Author Organization [facility] Address [address], [address] [address] Phone Care Team Providers Care It Instructor Name Role Phone Dinorah Atkinson MD Primary [...] Relevant to Health Maintenance Insurance MEDICARE C [facility] on file Care Teams It Instructor Relationship Specialty Start Date End Date Dinorah Atkinson MD PCP - General Family Medicine 11/08/17
[2025-02-28 19:23] LABS: Basophils Percent Auto 0.5 % (0.2-1.2); Eosinophils Absolute Auto 0.1 K/mm3 (0-0.3); Eosinophils Percent Auto 0.8 % (0-4.4); Hematocrit 35.5 % (37.0-47.0); Hemoglobin 11.5 g/dL (12.0-15.0); Immature Granulocyte Absolute 0.03 K/mm3 (0.00-0.031); Immature Granulocyte Percent A 0.4 % (0-0.5); Lymphocytes Absolute Auto 0.71 K/mm3 (0.9-3.2); Lymphocytes Percent Auto 9.7 % (18.3-44.2); Mean Corpuscular HGB Conc 32.4 g/dl (32-36); Mean Corpuscular Hemoglobin 28.8 pg (26-34); Mean Corpuscular Volume 88.8 fl (80-100); Mean Platelet Volume 10.2 fl (7.4-10.4); Monocytes Absolute Auto 1.1 K/mm3 (0.1-0.6); Monocytes Percent Auto 14.4 % (2.6-8.5); Neutrophils Absolute Auto 5.5 K/mm3 (1.3-6.7); Neutrophils Percent Auto 74.2 % (45.5-73.1); Platelet Count Result 210 k/mm3 (150-375); White Blood Count 7.4 K/mm3 (4.5-10.0)
[2025-02-28 19:49] LABS: Add Urine Microscopic? YES; Appearance Urine Clear (Clear); Bacteria Urine None Seen /hpf; Bilirubin Urine Negative (Negative); Blood Urine Trace (Negative); Color Urine Yellow (Yellow); Glucose Urine UA Negative (Negative); Ketones Urine Negative (Negative); Leukocyte Esterase Ur Negative LEU/UL (Negative); Nitrate Urine Negative (Negative); Non Pathogenic Casts 0-2; Protein Urine 1+ mg/dL (Negative); Specific Grav Ur 1.014 (1.001-1.035); Squamous Epithelial Cell Urine None Seen /hpf (Few); WBC Urine 0-5 /hpf (0-3); pH Urine 6.5 (5.0-9.0)
[2025-02-28 21:38] LABS: Alanine Aminotransferase 81 U/L (6-35); Albumin Level 3.8 g/dL (3.5-5.1); Alkaline Phosphatase 200 U/L (38-126); Anion Gap 6 mmol/L (4-12); Aspartate Amino Transferase 85 U/L (14-36); Bilirubin,Total 0.4 mg/dL (0.2-1.3); Blood Urea Nitrogen 17 mg/dL (7-17); Calcium 9.1 mg/dL (8.4-10.2); Carbon Dioxide 28 mmol/L (22-30); Chloride 88 mmol/L (98-107); Estimated Glomerular Filt Rate > 60; Glucose 109 mg/dL (65-110); Potassium 4.7 mmol/L (3.4-5.0); Sodium 122 mmol/L (137-145); Total Protein 6.7 g/dL (6.3-8.2)
== END 2025-02-28 10:56 | disposition home or self-care (01) ==
LOC: ANHGOSHLAB 10:56
PROVIDERS: PCP Family Medicine; Visit Provider Family Medicine
DX: R53.83 Other fatigue (principal); I10 Essential (primary) hypertension; R31.29 Other microscopic hematuria
CPT/HCPCS: 36415; 80053; 81001; 85025

== ENCOUNTER 2025-03-01 14:25 | Inpatient (IN) | payer MEDICARE, SELFPAY ==
--- NOTE | ~2025-03-01 | CT_ITS ---
CT chest abdomen pelvis w con Ordering provider: Esperanza Grant APRN History: 79 years Female with . concern for malignancy . Comparison: September 01, 2023 Technique: CT chest with IV contrast. CT abdomen and pelvis CT abdomen and pelvis with IV and with or al contrast. Radiation reduction technique utilized.The dose-length product was 374.25 mGy-cm. 100 mL Omnipaque 350 was given IV. FINDINGS: CHEST: --VISUALIZED THORACIC INLET: Calcified lesion in the right thyroid gland. Ultrasound evaluation advis ed. --MEDIASTINUM: Aorta/coronary arteries: Mild atheromatous disease. Ascending aorta measures 3.3 cm. Heart/other: The heart is not enlarged. Trace of pericardial effusion. Lymph nodes: No mediastinal or hilar adenopathy. --LUNGS: Focal area of atelectasis versus pneumonia in the right middle lobe laterally. Atelectatic c hanges seen in the right lower lobe posteriorly. Left pleural effusion with adjacent atelectasis seen in the left lower lobe area. No pulmonary nodules or masses. No pneumothorax. Underlying emphysemato us changes. --MUSCULOSKELETAL: Soft tissues: The superficial soft tissues are normal. Bones: Age appropriate degenerative changes of the spine. No suspicious bony lytic or sclerotic lesio ns. Dextroscoliosis. ABDOMEN/PELVIS: --MUSCULOSKELETAL: Bones: Age appropriate degenerative changes of the spine. No suspicious bony lytic or sclerotic lesio ns. Levoscoliosis. Bilateral sacroiliacs. Bilateral hip osteoarthritic changes. Pubic symphysitis. Superficial soft tissues: The superficial soft tissues are normal. --UPPER ABDOMINAL ORGANS: Liver: Large cyst is seen in the left lobe of the liver measuring 4 x 3.7 other tiny cysts are also s een in the right and left lobes. Mild hepatomegaly. Gallbladder: Contracted. Spleen: Normal. Stomach/duodenum: Normal. Pancreas: Normal. Adrenals: Normal. Kidneys: Cyst is seen in the mid pole measuring 1.3 cm. Mild left hydronephrotic changes unchanged fr om previous examination. Parapelvic cysts are not excluded although less likely. Pelviureteric juncti on stenosis is possible. Tiny cysts in the right kidney which is extending to the pelvic area. --PELVIC ORGANS: The bladder is normal. No bladder stones. --BOWEL AND MESENTERY: Colon: No evidence of diverticulitis. Fecal material is loaded in the colon.. Normal appendix. Small Bowel: Normal. No obstruction. Peritoneum/mesentery: No free air or free fluid. No mesenteric lymphadenopathy. --RETROPERITONEUM: Mild atheromatous disease of the abdominal aorta. No retroperitoneal lymphadenop athy. IMPRESSION: CHEST: 1. Left basilar atelectasis versus pneumonia with pleural effusion. 2. Minimal right basilar atelectasis versus pneumonia seen posteriorly. 3. Calcification in the right lobe of the thyroid gland. Ultrasound evaluation advised. 4. Trace of pericardial effusion. ABDOMEN/PELVIS: 1. No evidence of appendicitis, diverticulitis or intestinal obstruction. 2. Hepatic cysts unchanged. Mild hepatomegaly. 3. Mild left hydronephrotic changes unchanged from previous examination. Bilateral renal cysts. 4. Constipation. Reviewed, dictated and finalized at location A. IMPRESSION: CHEST: 1. Left basilar atelectasis versus pneumonia with pleural effusion. 2. Minimal right basilar atelectasis versus pneumonia seen posteriorly. 3. Calcification in the right lobe of the thyroid gland. Ultrasound evaluation advised. 4. Trace of pericardial effusion. ABDOMEN/PELVIS: 1. No evidence of appendicitis, diverticulitis or intestinal obstruction. 2. Hepatic cysts unchanged. Mild hepatomegaly. 3. Mild left hydronephrotic changes unchanged from previous examination. Bilat eral renal cysts. 4. Constipation.
[2025-03-01 14:28] VITALS: BP 148/71; PULSE 84; RESP 17; TEMP 36.6; O2SAT 98
--- OUTSIDE RECORDS SUMMARY | 2025-03-01 15:06 | XMS_ITS | Clinical Summary ---
Author Organization [facility] Address [address], [address] [address] Phone Care Team Providers Care Respiratory Manager Name Role Phone Dinorah Atkinson MD Primary [...] Relevant to Health Maintenance Insurance MEDICARE C [facility] on file Care Teams Respiratory Manager Relationship Specialty Start Date End Date Dinorah Atkinson MD PCP - General Family Medicine 11/08/17
--- NOTE | 2025-03-01 15:17 | ED_ITS ---
HPI - Recheck/Abnormal Lab/Rx General Chief Complaint: Recheck/Abnormal Lab/Rx <Esperanza Grant APRN - Last Filed: 03/01/25 18:52> Stated Complaint: ABN LABS <Esperanza Grant APRN - Last Filed: 03/01/25 18:52> Time Seen by Provider: 03/01/25 14:59 <Esperanza Grant APRN - Last Filed: 03/01/25 18:52> History of Present Illness HPI narrative: Patient is an 79-year-old female who presents to the ER with concerns for low sodium. She reports she went to urgent care on Wednesday, five days ago, with a sore throat, mild confusion, dizziness, nausea and dry mouth. Patient reports she was sent home and followed up with her primary care provider yesterday. Blood work was drawn yesterday, which showed low sodium (122). Patient's primary care provider called her today and advised her to come to the ER for further evaluation. She reports her symptoms have improved since Wednesday, but she continues to experience intermittent confusion, lightheadedness, dry mouth, and increased fatigue. Patient also endorses intermittent fevers at night with her T-max being 100.9. She denies any recent diarrhea, increased urination or pain. Patient reports her last bowel movement was this morning and it was ?normal for her. She endorses a history of hypothyroidism, hypertension, and low vitamin-D. <Esperanza Grant APRN - Last Filed: 03/01/25 18:52> Related Data Home Medications: Home Medications ?Medication ?Instructions ?Recorded ?Confirmed ?Last Taken ?Type calcium carbonate (Calcium 600) 600 mg PO BID 11/10/22 11/16/24 Unknown History multivitamin 1 tablet PO DAILY 11/10/22 11/16/24 Unknown History vit C 250 mg-vit E 200 unit-zinc 1 cap PO DAILY 11/10/22 11/16/24 Unknown History ox 12.5 [id number]-eigttb-zeax capsule (ICaps AREDS2) cephalexin 500 mg capsule 500 mg PO BID 02/28/25 02/28/25 Unknown History <Esperanza Grant APRN - Last Filed: 03/01/25 18:52> Allergies/Adverse Reactions: Allergies Allergy/AdvReac Type Severity Reaction Status Date / Time No Known Allergies Allergy Mild Verified 03/01/25 14:32 <Esperanza Grant APRN - Last Filed: 03/01/25 18:52> Review of Systems 2 Review of Systems: All systems reviewed & are unremarkable except as noted in HPI and below <Esperanza Grant APRN - Last Filed: 03/01/25 18:52> PMFSH Past Medical History Medical History: Medical History Fracture, sacrum/coccyx Osteoarthritis Essential (primary) hypertension Hypothyroidism (acquired) Dyslipidemia Osteoporosis without current pathological fracture <Esperanza Grant APRN - Last Filed: 03/01/25 18:52> Surgical History Surgical History: Surgical History History of surgery on wrist 2007 Left ORIF due to fracture 2009 - Right ORIF due to fracture History of hysterectomy 2007 <Esperanza Grant APRN - Last Filed: 03/01/25 18:52> Social History Social History: Social History Smoking status: Never smoker Alcohol intake: current Substance use: never Substance use type: does not use Lack of Transportation: No Lack of Food: Never True Current Housing: I Have Housing Concerned About Future Housing: No Difficulty Paying Gas/Electric Bills: No Difficulty Paying for Meds: No Currently Unemployed: No Education: Master's Degree or Higher Difficulty w/ Childcare or Family Care: No Living arrangements: with family Additional living arrangements comments: Occupation/Education: retired Gender identity (if verbalized by the patient): Female Sexual Orientation (if Verbalized by the Patient): Straight or Heterosexual Spiritual care concerns: No <Esperanza Grant APRN - Last Filed: 03/01/25 18:52> Exam 2 Narrative: GENERAL: Well appearing, well-nourished, non-toxic, in no acute distress. HEAD: Normocephalic, atraumatic. NECK: Supple. No adenopathy, no masses. RESPIRATORY: Airway patent, respirations nonlabored. Clear to auscultation bilaterally, no rales, rhonchi, wheezing. CARDIOVASCULAR: Regular rate and rhythm with murmur. No rubs or gallops. Peripheral pulses 2+ and equal bilaterally. ABDOMINAL: Soft, nontender, nondistended, no hepatosplenomegaly. Normoactive BS. MUSCULOSKELETAL: Moves all extremities. Strength/ROM intact without gross deformities. SKIN: Warm, dry, normal color. No rashes. NEURO: A&O X3. Speech clear. Cranial nerves II-XII intact. No ataxic movements. PSYCHIATRIC: Appropriate mood and affect. Normal interaction. <Esperanza Grant APRN - Last Filed: 03/01/25 18:52> Course BOOKKEEPING TEACHER/PA Physician Supervision This visit was performed by both a physician and an APC. I performed all aspects of the MDM as documented. <Anand Lobo MD - Last Filed: 03/01/25 18:54> Vital Signs Vital signs: Vital Signs Temperature 98 F 03/01/25 14:28 Pulse Rate 84 03/01/25 14:28 Respiratory Rate 17 03/01/25 14:28 Blood Pressure 148/71 H 03/01/25 14:28 Pulse Oximetry 98 03/01/25 14:28 Oxygen Delivery Room Air 03/01/25 14:28 Temperature 98 F 03/01/25 14:28 Pulse Rate 84 03/01/25 14:28 Respiratory Rate 17 03/01/25 14:28 Blood Pressure 148/71 H 03/01/25 14:28 Pulse Oximetry 98 03/01/25 14:28 Oxygen Delivery Room Air 03/01/25 14:28 <Esperanza Grant APRN - Last Filed: 03/01/25 18:52> Vital Signs Temperature 98 F 03/01/25 14:28 Pulse Rate 84 03/01/25 14:28 Respiratory Rate 17 03/01/25 14:28 Blood Pressure 148/71 H 03/01/25 14:28 Pulse Oximetry 98 03/01/25 14:28 Oxygen Delivery Room Air 03/01/25 14:28 Temperature 98 F 03/01/25 14:28 Pulse Rate 84 03/01/25 14:28 Respiratory Rate 17 03/01/25 14:28 Blood Pressure 148/71 H 03/01/25 14:28 Pulse Oximetry 98 03/01/25 14:28 Oxygen Delivery Room Air 03/01/25 14:28 <Anand Lobo MD - Last Filed: 03/01/25 18:54> MDM - Recheck/Abnormal Lab/Rx MDM Narrative Medical decision making narrative: Patient is an 79-year-old female who presents to the ER with concerns for low sodium. She reports she went to urgent care on Wednesday, five days ago, with some mild confusion, dizziness nausea and dry mouth. Patient reports she was sent home and followed up with her primary care provider yesterday. Blood work was drawn yesterday, which showed low sodium. Patient's primary care provider called her today and advised her to come to the ER for further evaluation. She reports her symptoms have improved since Wednesday, but she continues to experience intermittent confusion, lightheadedness, dry mouth, and increased fatigue. Patient also endorses intermittent fevers at night with her T-max being 100.9. She denies any recent diarrhea, increased urination or pain. Patient reports her last bowel movement was this morning and it was ?normal for her. She endorses a history of hypothyroidism, hypertension, and low vitamin-D. Upon re-examination pt endorsing intermittent wheezing, although her lungs sound clear. Labs Ordered: CBC, CMP, TSH, COVID/flu/RSV, magnesium Imaging Ordered: CT chest/abdomen/pelvis with contrast Medications Ordered:1L NS IV bolus x 2, Ceftriaxone 1gm IV, Azithromycin 500mg IV Results: Pt's CT scan indicates CHEST: 1. Left basilar atelectasis versus pneumonia with pleural effusion. 2. Minimal right basilar atelectasis versus pneumonia seen posteriorly. 3. Calcification in the right lobe of the thyroid gland. Ultrasound evaluation advised. 4. Trace of pericardial effusion. ABDOMEN/PELVIS: 1. No evidence of appendicitis, diverticulitis or intestinal obstruction. 2. Hepatic cysts unchanged. Mild hepatomegaly. 3. Mild left hydronephrotic changes unchanged from previous examination. Bilateral renal cysts. 4. Constipation. Diagnosis: hyponatremia, pneumonia Patient Education/Shared MDM: Results of lab work and imaging shared with patient. It is advised that pt be admitted to the hospital. She will be started on IV antibiotics to treat pneumonia. Pt has received 2L NS IV bolus in the ER to treat her hyponatremia and until sepsis can be ruled out. She and her verbalize understanding and are in agreement with plan. 1830- Spoke with hospitalist, ELIJAH Segura, who agreed with admitting pt to the hospital. Her TSH is still running at the time of hospital admission. She will be admitted to the medical/surgical floor with telemetry. <Esperanza Grant APRN - Last Filed: 03/01/25 18:52> Differential Diagnosis Differential diagnosis: Likely other (abnormal TSH, malignancy, COVID, hyponatremia, dehydration) <Esperanza Grant APRN - Last Filed: 03/01/25 18:52> Lab Data Attestation: I reviewed the patient's lab results. <Esperanza Grant APRN - Last Filed: 03/01/25 18:52> Result diagrams: 03/01/25 15:06 03/01/25 15:06 <Esperanza Grant APRN - Last Filed: 03/01/25 18:52> Labs: Lab Results 03/01/25 03/01/25 03/01/25 Range/Units 15:06 15:07 16:03 WBC 6.4 (4.5-10.0) K/mm3 RBC 3.76 L (4.2-5.4) M/mm3 Hgb 10.8 L (12.0-15.0) g/dL Hct 33.1 L (37.0-47.0) % MCV 88.0 (80-100) fl MCH 28.7 (26-34) pg MCHC 32.6 (32-36) g/dl RDW 14.0 (11.5-14.5) % Plt Count 237 (150-375) k/mm3 MPV 9.4 (7.4-10.4) fl Immature Gran % (Auto) 0.3 (0-0.5) % Neut % (Auto) 73.5 H (45.5-73.1) % Lymph % (Auto) 15.2 L (18.3-44.2) % [place] % (Auto) 8.6 H (2.6-8.5) % Eos % (Auto) 1.9 (0-4.4) % Baso % (Auto) 0.5 (0.2-1.2) % Lymph # (Auto) 0.98 (0.9-3.2) K/mm3 [place] # (Auto) 0.6 (0.1-0.6) K/mm3 Eos # (Auto) 0.1 (0-0.3) K/mm3 Baso # (Auto) 0.0 (0.0-0.1) K/mm3 Abs Immat Gran (auto) 0.02 (0.00-0.031) K/mm3 Absolute Neuts (auto) 4.7 (1.3-6.7) K/mm3 Absolute Nucleated RBC 0.000 (0.0-0.012) K/mm3 Nucleated RBC % 0.0 (0.0-0.2) % Sodium 128 L (137-145) mmol/L Potassium 3.9 (3.4-5.0) mmol/L Chloride 94 L (98-107) mmol/L Carbon Dioxide 27 (22-30) mmol/L Anion Gap 7 (4-12) mmol/L BUN 12 D (7-17) mg/dL Creatinine 0.56 L (0.7-1.0) mg/dL Estim Creat Clear Calc 61 ml/min Estimated GFR > 60 (59 - ) Glucose 162 H (65-110) mg/dL Calcium 8.9 (8.4-10.2) mg/dL Magnesium 2.1 (1.6-2.3) mg/dL Total Bilirubin 0.3 (0.2-1.3) mg/dL AST 55 H (14-36) U/L ALT 68 H (6-35) U/L Alkaline Phosphatase 178 H (38-126) U/L Total Protein 6.2 L (6.3-8.2) g/dL Albumin 3.6 (3.5-5.1) g/dL TSH (Reflex) 2.940 (0.465-4.68) uIU/mL Urine Color Yellow (Yellow) Urine Appearance Clear (Clear) Urine pH 6.5 (5.0-9.0) Ur Specific [place] 1.013 (1.001-1.035) Urine Protein Negative (Negative) mg/dL Urine Glucose (UA) Negative (Negative) mg/dL Urine Ketones Negative (Negative) mg/dL Ur Blood (Man) Trace (Negative) Urine Nitrate Negative (Negative) Urine Bilirubin Negative (Negative) Urine Urobilinogen 1.0 (<2.0) mg/dL Leukocyte Esterase Rfl Negative (Negative) SKYLER/UL Urine RBC 3-5 H (0-2) /hpf Urine WBC 0-5 (0-3) /hpf Ur Squamous Epith Cells None seen (Few) /hpf Urine Bacteria None seen /hpf Urine Casts 0-2 Influenza A (RT-PCR) Negative (Negative) Influenza B (RT-PCR) Negative (Negative) RSV (RT-PCR) Negative (Negative) SARS-CoV-2 RNA (RT-PCR) Negative (Negative) <Esperanza Viridiana Grant, DIGITAL PRODUCTION MANAGER - Last Filed: 03/01/25 18:52> Lab Results 03/01/25 03/01/25 03/01/25 Range/Units 15:06 15:07 16:03 WBC 6.4 (4.5-10.0) K/mm3 RBC 3.76 L (4.2-5.4) M/mm3 Hgb 10.8 L (12.0-15.0) g/dL Hct 33.1 L (37.0-47.0) % MCV 88.0 (80-100) fl MCH 28.7 (26-34) pg MCHC 32.6 (32-36) g/dl RDW 14.0 (11.5-14.5) % Plt Count 237 (150-375) k/mm3 MPV 9.4 (7.4-10.4) fl Immature Gran % (Auto) 0.3 (0-0.5) % Neut % (Auto) 73.5 H (45.5-73.1) % Lymph % (Auto) 15.2 L (18.3-44.2) % [place] % (Auto) 8.6 H (2.6-8.5) % Eos % (Auto) 1.9 (0-4.4) % Baso % (Auto) 0.5 (0.2-1.2) % Lymph # (Auto) 0.98 (0.9-3.2) K/mm3 [place] # (Auto) 0.6 (0.1-0.6) K/mm3 Eos # (Auto) 0.1 (0-0.3) K/mm3 Baso # (Auto) 0.0 (0.0-0.1) K/mm3 Abs Immat Gran (auto) 0.02 (0.00-0.031) K/mm3 Absolute Neuts (auto) 4.7 (1.3-6.7) K/mm3 Absolute Nucleated RBC 0.000 (0.0-0.012) K/mm3 Nucleated RBC % 0.0 (0.0-0.2) % Sodium 128 L (137-145) mmol/L Potassium 3.9 (3.4-5.0) mmol/L Chloride 94 L (98-107) mmol/L Carbon Dioxide 27 (22-30) mmol/L Anion Gap 7 (4-12) mmol/L BUN 12 D (7-17) mg/dL Creatinine 0.56 L (0.7-1.0) mg/dL Estim Creat Clear Calc 61 ml/min Estimated GFR > 60 (59 - ) Glucose 162 H (65-110) mg/dL Calcium 8.9 (8.4-10.2) mg/dL Magnesium 2.1 (1.6-2.3) mg/dL Total Bilirubin 0.3 (0.2-1.3) mg/dL AST 55 H (14-36) U/L ALT 68 H (6-35) U/L Alkaline Phosphatase 178 H (38-126) U/L Total Protein 6.2 L (6.3-8.2) g/dL Albumin 3.6 (3.5-5.1) g/dL TSH (Reflex) 2.940 (0.465-4.68) uIU/mL Urine Color Yellow (Yellow) Urine Appearance Clear (Clear) Urine pH 6.5 (5.0-9.0) Ur Specific [place] 1.013 (1.001-1.035) Urine Protein Negative (Negative) mg/dL Urine Glucose (UA) Negative (Negative) mg/dL Urine Ketones Negative (Negative) mg/dL Ur Blood (Man) Trace (Negative) Urine Nitrate Negative (Negative) Urine Bilirubin Negative (Negative) Urine Urobilinogen 1.0 (<2.0) mg/dL Leukocyte Esterase Rfl Negative (Negative) SKYLER/UL Urine RBC 3-5 H (0-2) /hpf Urine WBC 0-5 (0-3) /hpf Ur Squamous Epith Cells None seen (Few) /hpf Urine Bacteria None seen /hpf Urine Casts 0-2 Influenza A (RT-PCR) Negative (Negative) Influenza B (RT-PCR) Negative (Negative) RSV (RT-PCR) Negative (Negative) SARS-CoV-2 RNA (RT-PCR) Negative (Negative) <Anand Lobo MD - Last Filed: 03/01/25 18:54> Imaging Data Attestation: I personally reviewed and interpreted this imaging study as follows: < Esperanza Grant APRN - Last Filed: 03/01/25 18:52> Radiologist's impression: Impressions Chest/Abdomen/Pelvis CT 03/01/25 17:42 IMPRESSION: CHEST: 1. Left basilar atelectasis versus pneumonia with pleural effusion. 2. Minimal right basilar atelectasis versus pneumonia seen posteriorly. 3. Calcification in the right lobe of the thyroid gland. Ultrasound evaluation advised. 4. Trace of pericardial effusion. ABDOMEN/PELVIS: 1. No evidence of appendicitis, diverticulitis or intestinal obstruction. 2. Hepatic cysts unchanged. Mild hepatomegaly. 3. Mild left hydronephrotic changes unchanged from previous examination. Bilateral renal cysts. 4. Constipation. <Esperanza Grant APRN - Last Filed: 03/01/25 18:52> Discharge Plan Discharge Clinical Impression: Acute hyponatremia, Community acquired pneumonia, Dehydration, mild <Esperanza Grant APRN - Last Filed: 03/01/25 18:52> Patient Disposition: Still a Patient <Esperanza Grant APRN - Last Filed: 03/01/25 18:52> Condition: Stable <Esperanza Grant APRN - Last Filed: 03/01/25 18:52> Patient Language: Portuguese <Esperanza Grant APRN - Last Filed: 03/01/25 18:52> Prescriptions: No Action multivitamin Tablet 1 tablet PO DAILY calcium carbonate [Calcium 600] 600 mg calcium (1,500 mg) tablet 600 mg PO BID ICaps AREDS2 250 mg-200 unit -12.5 mg-1 mg capsule 1 cap PO DAILY cephalexin 500 mg capsule 500 mg PO BID cholecalciferol (vitamin D3) 50 mcg (2,000 unit) tablet 50 mcg PO DAILY Qty: 90 3RF levothyroxine 50 mcg tablet 50 mcg PO DAILY Qty: 90 1RF amlodipine 5 mg tablet 5 mg PO DAILY Qty: 90 1RF <Esperanza Grant APRN - Last Filed: 03/01/25 18:52> Follow-up/Referrals: Jossue Atkinson MD [Primary Care Provider] - <Esperanza Grant APRN - Last Filed: 03/01/25 18:52>
[2025-03-01 15:34] LABS: Basophils Percent Auto 0.5 % (0.2-1.2); Eosinophils Absolute Auto 0.1 K/mm3 (0-0.3); Eosinophils Percent Auto 1.9 % (0-4.4); Hematocrit 33.1 % (37.0-47.0); Hemoglobin 10.8 g/dL (12.0-15.0); Immature Granulocyte Absolute 0.02 K/mm3 (0.00-0.031); Immature Granulocyte Percent A 0.3 % (0-0.5); Lymphocytes Absolute Auto 0.98 K/mm3 (0.9-3.2); Lymphocytes Percent Auto 15.2 % (18.3-44.2); Mean Corpuscular HGB Conc 32.6 g/dl (32-36); Mean Corpuscular Hemoglobin 28.7 pg (26-34); Mean Platelet Volume 9.4 fl (7.4-10.4); Monocytes Absolute Auto 0.6 K/mm3 (0.1-0.6); Monocytes Percent Auto 8.6 % (2.6-8.5); Neutrophils Absolute Auto 4.7 K/mm3 (1.3-6.7); Neutrophils Percent Auto 73.5 % (45.5-73.1); Platelet Count Result 237 k/mm3 (150-375); Red Blood Count 3.76 M/mm3 (4.2-5.4); White Blood Count 6.4 K/mm3 (4.5-10.0)
--- OUTSIDE RECORDS SUMMARY | 2025-03-01 15:44 | XMS_ITS | Clinical Summary ---
Author Organization [facility] Address [address], [address] [address] Phone Care Team Providers Care Manager Leadership Development Name Role Phone Dinorah Atkinson MD Primary [...] Relevant to Health Maintenance Insurance MEDICARE C [facility] on file Care Teams Manager Leadership Development Relationship Specialty Start Date End Date Dinorah Atkinson MD PCP - General Family Medicine 11/08/17
[2025-03-01 15:58] LABS: Alanine Aminotransferase 68 U/L (6-35); Albumin Level 3.6 g/dL (3.5-5.1); Alkaline Phosphatase 178 U/L (38-126); Anion Gap 7 mmol/L (4-12); Aspartate Amino Transferase 55 U/L (14-36); Bilirubin,Total 0.3 mg/dL (0.2-1.3); Blood Urea Nitrogen 12 mg/dL (7-17); Calcium 8.9 mg/dL (8.4-10.2); Carbon Dioxide 27 mmol/L (22-30); Chloride 94 mmol/L (98-107); Estimated CRCL calculation 61 ml/min; Estimated Glomerular Filt Rate > 60; Glucose 162 mg/dL (65-110); Magnesium 2.1 mg/dL (1.6-2.3); Potassium 3.9 mmol/L (3.4-5.0); Sodium 128 mmol/L (137-145); Total Protein 6.2 g/dL (6.3-8.2)
[2025-03-01 16:08] LABS: Influenza A QL RT-PCR Negative (Negative); Influenza B QL RT-PCR Negative (Negative); RSV RNA, RT-PCR Negative (Negative); SARS-CoV-2 RNA PCR Negative (Negative)
[2025-03-01 16:14] LABS: Add Urine Microscopic? YES; Appearance Urine Clear (Clear); Bacteria Urine None Seen /hpf; Bilirubin Urine Negative (Negative); Blood Urine Trace (Negative); Color Urine Yellow (Yellow); Glucose Urine UA Negative (Negative); Ketones Urine Negative (Negative); Leukocyte Esterase Ur Negative LEU/UL (Negative); Nitrate Urine Negative (Negative); Non Pathogenic Casts 0-2; Protein Urine Negative (Negative); Specific Grav Ur 1.013 (1.001-1.035); Squamous Epithelial Cell Urine None Seen /hpf (Few); WBC Urine 0-5 /hpf (0-3); pH Urine 6.5 (5.0-9.0)
[2025-03-01] MEDS: SODIUM CHLORIDE 0.9% IV 1,000 ML 999 ML IV CONT ×2 (17:11→18:55)
--- NOTE | 2025-03-01 18:32 | PC.NURSE ---
patient ambulatory to restroom and back to bed with steady gait.
[2025-03-01 19:16] LABS: CRP 3.2 mg/dL (<1.0); Lactic Acid Reflex 0.9 mmol/L (0.7-2.0)
--- NOTE | 2025-03-01 19:54 | P.HP_ITS ---
H&P: HPI History of Present Illness Date/Time: 03/01/25 19:54 Chief Complaint: Low sodium Narrative: This is an 79 year old female patient admitted to the hospital with hyponatremia in the setting of acute illness for the past week or so. Patient states she went to Urgent Care on 02/25/25 with complaints including sore throat, mild confusion, dizziness, nausea and dry mouth. Patient states the confusion was a completely new symptom for her at that time. She states she recovered by the next day but then symptoms returned with lightheadedness, dizziness, fatigue and return of confusion. Patient also reported nocturnal fever the night of 02/27 going into 02/28. On 02/28 she saw her primary care who ordered blood work which resulted with significantly low sodium of 122. Patient was called and told to come to ER today. In ER, labs were repeated with Sodium level of 128. Patient was given 2 liters of Normal Saline IV for dehydration. UA did not appear infected. WBC was normal, CRP elevated at 3.2. CXR showed atelectasis vs pneumonia. CT chest abdomen pelvis obtained showing bibasilar atelectasis vs pneumonia. Rocephin and azithromycin initiated. Patient admitted for further treatment. Patient does have history of borderline low sodium ranging from 132 to 137. Glucose mildly elevated so ER tested Hemoglobin A1c which resulted at 5.8. Patient stated she feels much better after IV fluids. She has no further dizziness or any current symptoms. She added that when she had the nocturnal fever the other night she gets racing thoughts and confusion. She denies these symptoms currently. Review of Systems Review of Systems: All systems reviewed & are unremarkable except as noted in HPI and below PMFSH Past Medical History Medical History Fracture, sacrum/coccyx Osteoarthritis Essential (primary) hypertension Hypothyroidism (acquired) Dyslipidemia Osteoporosis without current pathological fracture Surgical History Surgical History History of surgery on wrist 2007 Left ORIF due to fracture 2009 - Right ORIF due to fracture History of hysterectomy 2007 Social History Social History Smoking status: Never smoker Alcohol intake: current Drinks per week: 1 Substance use: never Substance use type: does not use Do You Feel Safe in your Home?: Yes Lack of Transportation: No Lack of Food: Never True Current Housing: I Have Housing Concerned About Future Housing: No Difficulty Paying Gas/Electric Bills: No Difficulty Paying for Meds: No Currently Unemployed: No Education: Master's Degree or Higher Difficulty w/ Childcare or Family Care: No Living arrangements: with family Additional living arrangements comments: Occupation/Education: retired Gender identity (if verbalized by the patient): Female Sexual Orientation (if Verbalized by the Patient): Straight or Heterosexual Spiritual care concerns: No Meds Home Medications and Allergies Home Medications ?Medication ?Instructions ?Recorded ?Confirmed ?Type calcium carbonate (Calcium 600) 600 mg PO BID 11/10/22 03/01/25 History multivitamin 1 tablet PO DAILY 11/10/22 03/01/25 History vit C 250 mg-vit E 200 unit-zinc 1 cap PO DAILY 11/10/22 03/01/25 History ox 12.5 ye-vjwiic-vcivpe-zeax capsule (ICaps AREDS2) cholecalciferol (vitamin D3) 50 50 mcg PO DAILY #90 tabs 06/12/24 03/01/25 Rx mcg (2,000 unit) tablet levothyroxine 50 mcg tablet 50 mcg PO DAILY #90 tabs 09/07/24 03/01/25 Rx amlodipine 5 mg tablet 5 mg PO DAILY #90 tabs 10/23/24 03/01/25 Rx cephalexin 500 mg capsule 500 mg PO BID 02/28/25 03/01/25 History ondansetron 4 mg disintegrating 4 mg PO Q8H PRN nausea and vomiting 03/01/25 03/01/25 History tablet Allergies Allergy/AdvReac Type Severity Reaction Status Date / Time No Known Allergies Allergy Mild Verified 03/01/25 14:32 Vital Signs Vital Signs - 24 hr 03/01/25 14:28 Temperature 36.6 C Pulse Rate 84 Respiratory Rate 17 Blood Pressure 148/71 H Pulse Oximetry 98 Oxygen Delivery Room Air Exam Narrative: GENERAL: Well appearing, well-nourished, non-toxic, in no acute distress. HEAD: Normocephalic, atraumatic. NECK: Supple. No adenopathy, no masses. RESPIRATORY: Airway patent, respirations nonlabored. Clear to auscultation bilaterally, no rales, rhonchi, wheezing. CARDIOVASCULAR: Regular rate and rhythm with murmur. No rubs or gallops. Peripheral pulses 2+ and equal bilaterally. ABDOMINAL: Soft, nontender, nondistended, no hepatosplenomegaly. Normoactive BS. MUSCULOSKELETAL: Moves all extremities. Strength/ROM intact without gross deformities. SKIN: Warm, dry, normal color. No rashes. NEURO: A&O X3. Speech clear. Cranial nerves II-XII intact. No ataxic movements. PSYCHIATRIC: Appropriate mood and affect. Normal interaction. H&P: Results Labs Labs: Short CBC 03/01/25 Range/Units 15:06 WBC 6.4 (4.5-10.0) K/mm3 Hgb 10.8 L (12.0-15.0) g/dL Hct 33.1 L (37.0-47.0) % Plt Count 237 (150-375) k/mm3 BMP 03/01/25 15:06 Sodium 128 L Potassium 3.9 Chloride 94 L Carbon Dioxide 27 BUN 12 D Creatinine 0.56 L Glucose 162 H Calcium 8.9 Liver Function 03/01/25 Range/Units 15:06 Total Bilirubin 0.3 (0.2-1.3) mg/dL AST 55 H (14-36) U/L ALT 68 H (6-35) U/L Alkaline Phosphatase 178 H (38-126) U/L Albumin 3.6 (3.5-5.1) g/dL Urine 03/01/25 Range/Units 16:03 Urine Color Yellow (Yellow) Urine Appearance Clear (Clear) Urine pH 6.5 (5.0-9.0) Ur Specific [place] 1.013 (1.001-1.035) Urine Protein Negative (Negative) mg/dL Urine Glucose (UA) Negative (Negative) mg/dL Pulse Oximetry SpO2 results: 98-100% on room air Attestation: I personally reviewed and interpreted this pulse oximetry as follows: Interpretation: No need for supplemental oxygenation at this time Imaging CT chest abdomen pelvis: Radiologist's impression: CT chest abdomen pelvis w con Ordering provider: Esperanza Grant APRN History: 79 years Female with . concern for malignancy . Comparison: September 01, 2023 Technique: CT chest with IV contrast. CT abdomen and pelvis CT abdomen and pelvis with IV and with oral contrast. Radiation reduction technique utilized.The dose-length product was 374.25 mGy-cm. 100 mL Omnipaque 350 was given IV. FINDINGS: CHEST: --VISUALIZED THORACIC INLET: Calcified lesion in the right thyroid gland. Ultrasound evaluation advised. --MEDIASTINUM: Aorta/coronary arteries: Mild atheromatous disease. Ascending aorta measures 3.3 cm. Heart/other: The heart is not enlarged. Trace of pericardial effusion. Lymph nodes: No mediastinal or hilar adenopathy. --LUNGS: Focal area of atelectasis versus pneumonia in the right middle lobe laterally. Atelectatic changes seen in the right lower lobe posteriorly. Left pleural effusion with adjacent atelectasis seen in the left lower lobe area. No pulmonary nodules or masses. No pneumothorax. Underlying emphysematous changes. --MUSCULOSKELETAL: Soft tissues: The superficial soft tissues are normal. Bones: Age appropriate degenerative changes of the spine. No suspicious bony ly tic or sclerotic lesions. Dextroscoliosis. ABDOMEN/PELVIS: --MUSCULOSKELETAL: Bones: Age appropriate degenerative changes of the spine. No suspicious bony lytic or sclerotic lesions. Levoscoliosis. Bilateral sacroiliacs. Bilateral hip osteoarthritic changes. Pubic symphysitis. Superficial soft tissues: The superficial soft tissues are normal. --UPPER ABDOMINAL ORGANS: Liver: Large cyst is seen in the left lobe of the liver measuring 4 x 3.7 other tiny cysts are also seen in the right and left lobes. Mild hepatomegaly. Gallbladder: Contracted. Spleen: Normal. Stomach/duodenum: Normal. Pancreas: Normal. Adrenals: Normal. Kidneys: Cyst is seen in the mid pole measuring 1.3 cm. Mild left hydronephrotic changes unchanged from previous examination. Parapelvic cysts are not excluded although less likely. Pelviureteric junction stenosis is possible. Tiny cysts in the right kidney which is extending to the pelvic area. --PELVIC ORGANS: The bladder is normal. No bladder stones. --BOWEL AND MESENTERY: Colon: No evidence of diverticulitis. Fecal material is loaded in the colon.. Normal appendix. Small Bowel: Normal. No obstruction. Peritoneum/mesentery: No free air or free fluid. No mesenteric lymphadenopathy. --RETROPERITONEUM: Mild atheromatous disease of the abdominal aorta. No retroperitoneal lymphadenopathy. IMPRESSION: CHEST: 1. Left basilar atelectasis versus pneumonia with pleural effusion. 2. Minimal right basilar atelectasis versus pneumonia seen posteriorly. 3. Calcification in the right lobe of the thyroid gland. Ultrasound evaluation advised. 4. Trace of pericardial effusion. ABDOMEN/PELVIS: 1. No evidence of appendicitis, diverticulitis or intestinal obstruction. 2. Hepatic cysts unchanged. Mild hepatomegaly. 3. Mild left hydronephrotic changes unchanged from previous examination. Bilateral renal cysts. 4. Constipation. Reviewed, dictated and finalized at location A. Assessment and Plan Assessment and plan (1) Acute hyponatremia: Code(s): E87.1 - Hypo-osmolality and hyponatremia Status: Acute Assessment and Plan: -Sodium 122 as outpatient yesterday, 128 on arrival to ER today -Episodes of confusion, dizziness, nausea, lightheadedness, dry mouth and intermittent fevers for about a week -Patient recevied 2 liters of IV normal saline and then placed on 125 mL/hr per ER provider -Urine sodium ordered off UA already in lab -Will repeat metabolic panel at 2200 -Mild hyperglycemia but sodium correction still works out to 129 -Caution against rapid correction, decreased IV fluid rate to 75 mL/hr -Regular diet ordered -Hemoglobin A1c added, previously 5.6, not on medication for glucose/diabetes -Monitor I+O carefully -Avoid excessive free water intake -Small left pleural effusion noted on CT scan, monitor for signs of fluid overload, Echocardiogram ordered (2) Community acquired pneumonia: Code(s): J18.9 - Pneumonia, unspecified organism Status: Acute Assessment and Plan: -Right middle lobe and bi-basilar atelectasis vs pneumonia -Normal WBC, CRP mildly elevated at 3.2 -Rocephin/azithromycin started in ER, lung changes of emphysema noted on CT scan -Monitor respiratory status, oxygen as needed to keep sats >90 -Intermittent fevers recently (3) Hypothyroidism (acquired): Code(s): E03.9 - Hypothyroidism, unspecified Status: Acute Assessment and Plan: -TSH normal, continue home medications (4) Essential (primary) hypertension: Code(s): I10 - Essential (primary) hypertension Status: Acute Assessment and Plan: -Cardiomegaly noted on recent CXR, pleural effusion on left -Echocardiogram ordered -Continue home medications (5) Impaired glucose metabolism: Code(s): R73.09 - Other abnormal glucose Status: Acute Assessment and Plan: -Mildly elevated glucose noted on labs -Hemoglobin A1c 5.8, previously 5.6 Quality VTE Prophylaxis VTE prophylaxis: pharmacologic ordered Total time spent on this patient 100 minutes Hospitalist MIPS Advance Care Plan I have confirmed that the patient's Advanced Care Plan is present, code status is documented, or surrogate decision maker is listed in patient medical record.: Yes Medication Reconciliation I have utilized all available resources to obtain, update and review the patients current medications (includes all prescriptions, OTC, herbals, cannabis, and nutritional supplements).: Yes
[2025-03-01] MEDS: AZITHROMYCIN 500 MG/NS 250 ML 500 MG/250 ML BAG 250 MG IVPB (20:00)
[2025-03-01 20:05] VITALS: BP 172/76; PULSE 83; RESP 16; TEMP 36.7; O2SAT 99
--- NOTE | 2025-03-01 20:20 | PC.NURSE ---
patient being admitted with antibiotics infusing per order
[2025-03-01 20:30] VITALS: BP 150/73; PULSE 88; RESP 20; TEMP 36.2; O2SAT 100
[2025-03-01] MEDS: SODIUM CHLORIDE 0.9% IV 1,000 ML 75 ML IV CONT (21:09)
--- NOTE | 2025-03-01 21:16 | ADMGEN ---
This patient, Yola Benavides, was admitted to [facility] Surg Room 332-01. Patient/family oriented to hospital policies and general routines including ID bracelet, bed and alarms, visiting hours, pain management, procedures, bathroom and other care routines, personal items, smoking policy, room service/diet, and visiting hours. Information on how to activate the Rapid Response Team has been discussed. Patient/Family are encouraged to report perceived risks to care and to ask questions if they do not understand what they are told or what they should do.
[2025-03-01 22:10] LABS: Hemoglobin A1C 5.8 % (<5.7)
[2025-03-01 22:33] LABS: Anion Gap 6 mmol/L (4-12); Blood Urea Nitrogen 10 mg/dL (7-17); Calcium 8.4 mg/dL (8.4-10.2); Carbon Dioxide 25 mmol/L (22-30); Chloride 101 mmol/L (98-107); Estimated CRCL calculation 61 ml/min; Estimated Glomerular Filt Rate > 60; Glucose 127 mg/dL (65-110); Sodium 132 mmol/L (137-145)
[2025-03-01 23:17] LABS: Sodium Urine Random 60 meq/L
[2025-03-02] VITALS (10 sets, daily range): BP systolic 135–159; BP diastolic 70–83; PULSE 67–84; RESP 16–18; TEMP 36.2–36.8; O2SAT 93–98
--- NOTE | 2025-03-02 | ECHO_ITS ---
Patient Info Name: Yola Benavides Age: 79 years : 1945 Gender: Female Ht: 65 in Wt: 126 lbs BSA: 1.62 m2 HR: 81 bpm BP: 159 / 83 mmHg Technical Quality: Good Exam Date: 03/02/2025 1:32 PM Patient Status: I Admit Date: 03/02/2025 Exam Type: CA echo doppler color flow Complete two-dimensional, color flow and Doppler transthoracic echocardiogram is performed. Staff Referring Physician: Esperanza Grant Entry Level Account Executive: Neena Dubose Attending Provider: Devon Law MD Summary 1. Complete two-dimensional, color flow and Doppler transthoracic echocardiogram is performed. 2. Left ventricular chamber dimension is normal. 3. Left ventricular systolic function is normal, estimated at 65-70. 4. There is mild concentric increased left ventricular wall thickness. 5. The left ventricular diastolic function is abnormal. 6. E/e' 15 is elevated. 7. Left atrial chamber dimension is mildly enlarged. 8. There is mild aortic valve sclerosis. 9. There is trace tricuspid valve regurgitation. 10. No pulmonary hypertension, estimated pulmonary arterial systolic pressure is 29 mmHg. Left Ventricle E/e' 15 is elevated. Left ventricular chamber dimension is normal. Left ventricular systolic function is normal, estimated at 65-70. There is mild concentric increased left ventricular wall thickness. The left ventricular diastolic function is abnormal. Right Ventricle Right ventricular chamber dimension is normal. Right ventricular systolic function is normal and with normal TAPSE 1.9 cm. Left Atria Left atrial chamber dimension is mildly enlarged. Right Atria Right atrial chamber dimension is normal. Aortic Valve The aortic valve is trileaflet. There is mild aortic valve sclerosis. There is no aortic valve stenosis. There is no aortic valve regurgitation. Pulmonic Valve There is no pulmonic regurgitation. Mitral Valve There is no mitral valve stenosis. There is no mitral valve regurgitation. Tricuspid Valve There is trace tricuspid valve regurgitation. No pulmonary hypertension, estimated pulmonary arterial systolic pressure is 29 mmHg. Pericardium/Pleural There is no pericardial effusion. Inferior Vena Cava Normal inferior vena cava with >50% collapse upon inspiration consistent with normal right atrial pressure, 5 mmHg. Aorta The aortic root size at the sinus of Valsalva is normal. Left Ventricular Outflow Tract Name Value Normal LVOT 2D LVOT Diameter 1.8 cm LVOT Doppler LVOT Peak Velocity 173 cm/s LVOT Peak Gradient 12 mmHg LVOT Mean Gradient 9 mmHg LVOT VTI 40 cm LVOT VTI/AV VTI Ratio 1.0 LVOT Stroke Volume 107 ml LVOT CO 23.1 l/min LVOT CI 14.3 l/min/m2 Pulmonic Valve Name Value Normal PV Doppler PV Peak Velocity 107 cm/s PV Peak Gradient 5 mmHg Mitral Valve Name Value Normal MV Diastolic Function MV E Peak Velocity 103 cm/s MV A Peak Velocity 82 cm/s MV E/A 1.2 MV Decel Time (PW) 203 ms MV Annular TDI MV E/e' (Septal) 15.1 MV E/e' (Lateral) 15.5 MV E/e' (Average) 15.3 Tricuspid Valve Name Value Normal TV Regurgitation Doppler TR Peak Velocity 245 cm/s TR Peak Gradient 24 mmHg Estimated PAP/RSVP RA Pressure 5 mmHg <=5 PA Systolic Pressure 29 mmHg <36 RV Systolic Pressure 29 mmHg <36 TV Annular TDI TV Lateral Anabel s' Velocity 14.6 cm/s >=9.5 Aorta Name Value Normal Ascending Aorta Ao Root Diameter (MM) 3.4 cm Ao Root Diam Index (MM) 2.1 cm/m2 Aortic Valve Name Value Normal AV Doppler AV Peak Velocity 187 cm/s AV Peak Gradient 14 mmHg AV Mean Gradient 10 mmHg AV VTI 41 cm AV Area (Cont Eq VTI) 2.6 cm2 >=3.0 AV Area (Cont Eq Sarbjit) 2.4 cm2 AV DI (Sarbjit) 0.92 AV Regurgitation 2D LVOT Area 2.6 cm2 Ventricles Name Value Normal LV Dimensions 2D/MM IVS Diastolic Thickness (2D) 1.2 cm 0.6-1.0 LVID Diastole (2D) 4.1 cm 3.8-5.2 LVIW Diastolic Thickness (2D) 1.2 cm 0.6-0.9 LVID Systole (2D) 3.0 cm 2.2-3.5 LVOT Diameter 1.8 cm LV Mass (2D Cubed) 172.20 g 67.00-162.00 LV Mass Index (2D Cubed) 106 g/m2 43-95 Relative Wall Thickness (2D) 0.58 <=0.42 LV Fractional Shortening/Ejection Fraction 2D/MM LV Fractional Shortening (2D) 28 % 27-45 LV EF (2D Teichholz) 54 % LV Diastolic Volume (4C MOD) 99 ml LV EF (4C MOD) 68 % LV Diastolic Volume (2C MOD) 93 ml LV EF (2C MOD) 72 % LV Diastolic Volume (BP MOD) 96 ml 46-106 LV Diastolic Volume Index (BP MOD) 59 ml/m2 29-61 LV Systolic Volume (BP MOD) 29 ml 14-42 LV Systolic Volume Index (BP MOD) 18 ml/m2 8-24 LV EF (BP MOD) 70 % 54-74 LV Diastolic Length (4C) 7.8 cm LV Systolic Length (4C) 6.6 cm LV Stroke Volume (4C MOD) 68 ml RV Dimensions 2D/MM RVID Diastole (2D) 3.9 cm 2.1-3.5 Atria Name Value Normal LA Dimensions LA Dimension (MM) 3.7 cm 2.7-3.8 LA Volume (4C A-L) 56 ml LA Volume (BP A-L) 53 ml RA Dimensions RA Systolic Major [place] Length (4C) 4.7 cm 2.2-2.8 RA Area (4C) 14.1 cm2 <=18.0 Report Signatures
[2025-03-02] MEDS: LEVOTHYROXINE SODIUM 50 MCG TABLET PO (05:31)
[2025-03-02 07:02] LABS: Basophils Percent Auto 0.5 % (0.2-1.2); Eosinophils Absolute Auto 0.3 K/mm3 (0-0.3); Eosinophils Percent Auto 3.4 % (0-4.4); Hematocrit 32.2 % (37.0-47.0); Hemoglobin 10.3 g/dL (12.0-15.0); Immature Granulocyte Absolute 0.04 K/mm3 (0.00-0.031); Immature Granulocyte Percent A 0.5 % (0-0.5); Lymphocytes Absolute Auto 1.36 K/mm3 (0.9-3.2); Lymphocytes Percent Auto 18.5 % (18.3-44.2); Mean Corpuscular Hemoglobin 28.7 pg (26-34); Mean Corpuscular Volume 89.7 fl (80-100); Mean Platelet Volume 9.5 fl (7.4-10.4); Monocytes Absolute Auto 0.7 K/mm3 (0.1-0.6); Monocytes Percent Auto 9.8 % (2.6-8.5); Neutrophils Percent Auto 67.3 % (45.5-73.1); Platelet Count Result 238 k/mm3 (150-375); Red Blood Count 3.59 M/mm3 (4.2-5.4); Red Cell Distribution Width 14.2 % (11.5-14.5); White Blood Count 7.4 K/mm3 (4.5-10.0)
[2025-03-02 07:22] LABS: Alanine Aminotransferase 61 U/L (6-35); Albumin Level 3.3 g/dL (3.5-5.1); Alkaline Phosphatase 187 U/L (38-126); Anion Gap 5 mmol/L (4-12); Aspartate Amino Transferase 55 U/L (14-36); Bilirubin,Total 0.3 mg/dL (0.2-1.3); Blood Urea Nitrogen 8 mg/dL (7-17); Calcium 8.4 mg/dL (8.4-10.2); Carbon Dioxide 26 mmol/L (22-30); Chloride 97 mmol/L (98-107); Estimated CRCL calculation 64 ml/min; Estimated Glomerular Filt Rate > 60; Glucose 91 mg/dL (65-110); Phosphorus 2.9 mg/dL (2.5-4.5); Potassium 3.6 mmol/L (3.4-5.0); Sodium 128 mmol/L (137-145); Total Protein 5.9 g/dL (6.3-8.2)
[2025-03-02] MEDS: amLODIPine BESYLATE 5 MG TABLET PO (09:23)
[2025-03-02] MEDS: CHOLECALCIFEROL (VITAMIN D3) 25 MCG (1,000 UNITS) TABLET 50 MCG PO (09:23)
[2025-03-02] MEDS: MULTIVITAMINS THERAPEUTIC TAB (*BKC) 1 TABLET PO (09:23)
--- NOTE | 2025-03-02 16:04 | PM.IMPN ---
Progress Note: A&P Assessment and Plan (1) Acute hyponatremia: Code(s): E87.1 - Hypo-osmolality and hyponatremia Status: Acute Assessment and Plan: -Sodium 122 as outpatient yesterday, 128 on arrival to ER today -Episodes of confusion, dizziness, nausea, lightheadedness, dry mouth and intermittent fevers for about a week -Patient recevied 2 liters of IV normal saline and then placed on 125 mL/hr per ER provider -Urine sodium ordered off UA already in lab -Will repeat metabolic panel at 2200 -Mild hyperglycemia but sodium correction still works out to 129 -Caution against rapid correction, decreased IV fluid rate to 75 mL/hr -Regular diet ordered -Hemoglobin A1c added, previously 5.6, not on medication for glucose/diabetes -Monitor I+O carefully -Avoid excessive free water intake -Small left pleural effusion noted on CT scan, monitor for signs of fluid overload, Echocardiogram ordered - trend labs (2) Community acquired pneumonia: Code(s): J18.9 - Pneumonia, unspecified organism Status: Acute Assessment and Plan: -Right middle lobe and bi-basilar atelectasis vs pneumonia -Normal WBC, CRP mildly elevated at 3.2 -Rocephin/azithromycin started in ER, lung changes of emphysema noted on CT scan -Monitor respiratory status, oxygen as needed to keep sats >90 -Intermittent fevers recently -amblation IS (3) Hypothyroidism (acquired): Code(s): E03.9 - Hypothyroidism, unspecified Status: Acute Assessment and Plan: -TSH normal, continue home medications (4) Essential (primary) hypertension: Code(s): I10 - Essential (primary) hypertension Status: Acute Assessment and Plan: -Cardiomegaly noted on recent CXR, pleural effusion on left -Echocardiogram ordered -Continue home medications (5) Impaired glucose metabolism: Code(s): R73.09 - Other abnormal glucose Status: Acute Assessment and Plan: -Mildly elevated glucose noted on labs -Hemoglobin A1c 5.8, previously 5.6 Time Spent With Patient Time with patient: 25 - 35 minutes Subjective Date/time seen: 03/02/25 16:04 Interval history: This is an 79 year old female patient admitted to the hospital with hyponatremia in the setting of acute illness for the past week or so. Patient states she went to Urgent Care on 02/25/25 with complaints including sore throat, mild confusion, dizziness, nausea and dry mouth. Patient states the confusion was a completely new symptom for her at that time. She states she recovered by the next day but then symptoms returned with lightheadedness, dizziness, fatigue and return of confusion. Patient also reported nocturnal fever the night of 02/27 going into 02/28. Patient does have history of borderline low sodium ranging from 132 to 137. Glucose mildly elevated so ER tested Hemoglobin A1c which resulted at 5.8. on iv antibiotics for possible pneumonia Review of Systems Review of Systems: All systems reviewed & are unremarkable except as noted in HPI and below Exam Narrative: GENERAL: Well appearing, well-nourished, non-toxic, in no acute distress. HEAD: Normocephalic, atraumatic. NECK: Supple. No adenopathy, no masses. RESPIRATORY: Airway patent, respirations nonlabored. Clear to auscultation bilaterally, no rales, rhonchi, wheezing. CARDIOVASCULAR: Regular rate and rhythm with murmur. No rubs or gallops. Peripheral pulses 2+ and equal bilaterally. ABDOMINAL: Soft, nontender, nondistended, no hepatosplenomegaly. Normoactive BS. MUSCULOSKELETAL: Moves all extremities. Strength/ROM intact without gross deformities. SKIN: Warm, dry, normal color. No rashes. NEURO: A&O X3. Speech clear. Cranial nerves II-XII intact. No ataxic movements. PSYCHIATRIC: Appropriate mood and affect. Normal interaction. Objective Data Vital Signs Vital Signs: Vital Signs - 24 hr 03/01/25 20:05 03/01/25 20:30 03/01/25 21:00 Temperature 98.1 F 97.1 F L Pulse Rate 83 88 Respiratory Rate 16 20 Blood Pressure 172/76 H 150/73 H Pulse Oximetry 99 100 Oxygen Delivery Room Air 03/02/25 00:00 03/02/25 04:00 03/02/25 06:00 Temperature 97.8 F Pulse Rate 73 72 84 Respiratory Rate 16 Blood Pressure 159/83 H Pulse Oximetry 93 Oxygen Delivery 03/02/25 09:21 03/02/25 09:23 03/02/25 09:23 Temperature 97.1 F L Pulse Rate 82 82 67 Respiratory Rate 16 16 Blood Pressure 154/75 H Pulse Oximetry 98 98 Oxygen Delivery Room Air 03/02/25 12:00 03/02/25 12:41 03/02/25 14:00 Temperature 98.2 F Pulse Rate 78 78 Respiratory Rate 16 Blood Pressure 135/70 Pulse Oximetry 95 Oxygen Delivery Room Air Intake/Output Intake/Output: Intake & Output 02/27/25 02/28/25 03/01/25 03/02/25 23:59 23:59 23:59 23:59 Intake Total 2050 1877.5 Output Total 350 1600 Balance 1700 277.5 Meds/Results Medications: Active Medications Generic Name Dose Route Start Last Admin Trade Name Freq PRN Reason Stop Dose Admin Acetaminophen 650 mg 03/02/25 01:06 Acetaminophen 325 Mg Tablet PO Q4H PRN Pain Rated 5 or Less Amlodipine Besylate 5 mg 03/02/25 09:00 03/02/25 09:23 Amlodipine Besylate 5 Mg Tablet PO 5 mg DAILY MARY ANN Administration Azithromycin 500 mg 03/02/25 20:00 Azithromycin 250 Mg Tablet PO 03/04/25 20:01 Q24H MARY ANN Enoxaparin Sodium 40 mg 03/02/25 09:00 03/02/25 09:23 Enoxaparin 40 Mg/0.4 Ml Syringe SUB-Q Not Given DAILY MARY ANN Ceftriaxone Sodium 1 gm in 50 mls @ 100 mls/hr 03/02/25 18:00 Rocephin 1 Gm/Ns 50 Ml IVPB 03/07/25 18:29 Q24H MARY ANN Levothyroxine Sodium 50 mcg 03/02/25 06:30 03/02/25 05:31 Levothyroxine Sodium 50 Mcg Tablet PO 50 mcg DAILY@0630 MARY ANN Administration Morphine Sulfate 2 mg 03/02/25 01:06 Morphine Sulfate (*Crx) 2 Mg/Ml Inj IV PUSH Q4H PRN Pain Rated 6 or Greater Multivitamins Therapeutic 1 tablet 03/02/25 09:00 03/02/25 09:23 Multivitamins Therapeutic Tab (*Bkc) PO 1 tablet DAILY MARY ANN Administration Perflutren Lipid Microsphere 0 ml 03/01/25 20:02 Perflutren Lipid Microspheres 1.5 Ml Vial Diluted To 10 Ml Total Volume IV PUSH 03/04/25 20:02 ONCE PRN adequate visualization Protocol Vitamin D 50 mcg 03/02/25 09:00 03/02/25 09:23 Cholecalciferol (Vitamin D3) 25 Mcg (1,000 Units) Tablet PO 50 mcg DAILY MARY ANN Administration Radiology Results: ITS Impressions Chest/Abdomen/Pelvis CT 03/01/25 17:42 IMPRESSION: CHEST: 1. Left basilar atelectasis versus pneumonia with pleural effusion. 2. Minimal right basilar atelectasis versus pneumonia seen posteriorly. 3. Calcification in the right lobe of the thyroid gland. Ultrasound evaluation advised. 4. Trace of pericardial effusion. ABDOMEN/PELVIS: 1. No evidence of appendicitis, diverticulitis or intestinal obstruction. 2. Hepatic cysts unchanged. Mild hepatomegaly. 3. Mild left hydronephrotic changes unchanged from previous examination. Bilateral renal cysts. 4. Constipation. Labs Labs: Laboratory Results - last 24 hr 03/01/25 03/01/25 03/01/25 15:06 15:07 16:03 WBC RBC Hgb Hct MCV MCH MCHC RDW Plt Count MPV Immature Gran % (Auto) Neut % (Auto) Lymph % (Auto) [place] % (Auto) Eos % (Auto) Baso % (Auto) Lymph # (Auto) [place] # (Auto) Eos # (Auto) Baso # (Auto) Abs Immat Gran (auto) Absolute Neuts (auto) Absolute Nucleated RBC Nucleated RBC % Sodium Potassium Chloride Carbon Dioxide Anion Gap BUN Creatinine Estim Creat Clear Calc Estimated GFR Glucose Hemoglobin A1c 5.8 H Lactic Acid Calcium Phosphorus Magnesium Total Bilirubin AST ALT Alkaline Phosphatase C-Reactive Protein Total Protein Albumin TSH (Reflex) 2.940 Urine Color Yellow Urine Appearance Clear Urine pH 6.5 Ur Specific [place] 1.013 Urine Protein Negative Urine Glucose (UA) Negative Urine Ketones Negative Ur Blood (Man) Trace Urine Nitrate Negative Urine Bilirubin Negative Urine Urobilinogen 1.0 Leukocyte Esterase Rfl Negative Urine RBC 3-5 H Urine WBC 0-5 Ur Squamous Epith Cells None seen Urine Bacteria None seen Urine Casts 0-2 Ur Random Sodium Influenza A (RT-PCR) Negative Influenza B (RT-PCR) Negative RSV (RT-PCR) Negative SARS-CoV-2 RNA (RT-PCR) Negative 03/01/25 03/01/25 03/01/25 18:44 21:49 22:01 WBC RBC Hgb Hct MCV MCH MCHC RDW Plt Count MPV Immature Gran % (Auto) Neut % (Auto) Lymph % (Auto) [place] % (Auto) Eos % (Auto) Baso % (Auto) Lymph # (Auto) [place] # (Auto) Eos # (Auto) Baso # (Auto) Abs Immat Gran (auto) Absolute Neuts (auto) Absolute Nucleated RBC Nucleated RBC % Sodium 132 L Potassium 4.0 Chloride 101 Carbon Dioxide 25 Anion Gap 6 BUN 10 Creatinine 0.56 L Estim Creat Clear Calc 61 Estimated GFR > 60 Glucose 127 H Hemoglobin A1c Lactic Acid 0.9 Calcium 8.4 Phosphorus Magnesium 2.0 Total Bilirubin AST ALT Alkaline Phosphatase C-Reactive Protein 3.2 H Total Protein Albumin TSH (Reflex) Urine Color Urine Appearance Urine pH Ur Specific [place] Urine Protein Urine Glucose (UA) Urine Ketones Ur Blood (Man) Urine Nitrate Urine Bilirubin Urine Urobilinogen Leukocyte Esterase Rfl Urine RBC Urine WBC Ur Squamous Epith Cells Urine Bacteria Urine Casts Ur Random Sodium 60 Influenza A (RT-PCR) Influenza B (RT-PCR) RSV (RT-PCR) SARS-CoV-2 RNA (RT-PCR) 03/02/25 06:04 WBC 7.4 RBC 3.59 L Hgb 10.3 L Hct 32.2 L MCV 89.7 MCH 28.7 MCHC 32.0 RDW 14.2 Plt Count 238 MPV 9.5 Immature Gran % (Auto) 0.5 Neut % (Auto) 67.3 Lymph % (Auto) 18.5 [place] % (Auto) 9.8 H Eos % (Auto) 3.4 Baso % (Auto) 0.5 Lymph # (Auto) 1.36 [place] # (Auto) 0.7 H Eos # (Auto) 0.3 Baso # (Auto) 0.0 Abs Immat Gran (auto) 0.04 H Absolute Neuts (auto) 5.0 Absolute Nucleated RBC 0.000 Nucleated RBC % 0.0 Sodium 128 L Potassium 3.6 Chloride 97 L Carbon Dioxide 26 Anion Gap 5 BUN 8 Creatinine 0.53 L Estim Creat Clear Calc 64 Estimated GFR > 60 Glucose 91 Hemoglobin A1c Lactic Acid Calcium 8.4 Phosphorus 2.9 Magnesium 2.0 Total Bilirubin 0.3 AST 55 H ALT 61 H Alkaline Phosphatase 187 H C-Reactive Protein Total Protein 5.9 L Albumin 3.3 L TSH (Reflex) Urine Color Urine Appearance Urine pH Ur Specific [place] Urine Protein Urine Glucose (UA) Urine Ketones Ur Blood (Man) Urine Nitrate Urine Bilirubin Urine Urobilinogen Leukocyte Esterase Rfl Urine RBC Urine WBC Ur Squamous Epith Cells Urine Bacteria Urine Casts Ur Random Sodium Influenza A (RT-PCR) Influenza B (RT-PCR) RSV (RT-PCR) SARS-CoV-2 RNA (RT-PCR) Quality VTE Prophylaxis VTE prophylaxis: pharmacologic ordered
[2025-03-02] MEDS: AZITHROMYCIN 250 MG TABLET 500 MG PO (20:48)
[2025-03-03] VITALS: PULSE 62
[2025-03-03 04:00] VITALS: PULSE 59
[2025-03-03 06:00] VITALS: BP 160/75; PULSE 67; RESP 18; TEMP 36.6; O2SAT 96
[2025-03-03 06:03] LABS: Basophils Percent Auto 0.5 % (0.2-1.2); Eosinophils Absolute Auto 0.5 K/mm3 (0-0.3); Eosinophils Percent Auto 8.5 % (0-4.4); Hematocrit 33.6 % (37.0-47.0); Hemoglobin 10.6 g/dL (12.0-15.0); Immature Granulocyte Absolute 0.03 K/mm3 (0.00-0.031); Immature Granulocyte Percent A 0.5 % (0-0.5); Lymphocytes Absolute Auto 1.78 K/mm3 (0.9-3.2); Mean Corpuscular HGB Conc 31.5 g/dl (32-36); Mean Corpuscular Hemoglobin 28.3 pg (26-34); Mean Corpuscular Volume 89.8 fl (80-100); Mean Platelet Volume 8.9 fl (7.4-10.4); Monocytes Absolute Auto 0.7 K/mm3 (0.1-0.6); Monocytes Percent Auto 10.6 % (2.6-8.5); Neutrophils Absolute Auto 3.1 K/mm3 (1.3-6.7); Neutrophils Percent Auto 50.9 % (45.5-73.1); Platelet Count Result 264 k/mm3 (150-375); Red Blood Count 3.74 M/mm3 (4.2-5.4); Red Cell Distribution Width 14.1 % (11.5-14.5); White Blood Count 6.1 K/mm3 (4.5-10.0)
[2025-03-03] MEDS: LEVOTHYROXINE SODIUM 50 MCG TABLET PO (06:07)
[2025-03-03 06:41] LABS: Alanine Aminotransferase 61 U/L (6-35); Albumin Level 3.2 g/dL (3.5-5.1); Alkaline Phosphatase 174 U/L (38-126); Anion Gap 4 mmol/L (4-12); Aspartate Amino Transferase 55 U/L (14-36); Bilirubin,Total 0.3 mg/dL (0.2-1.3); Blood Urea Nitrogen 11 mg/dL (7-17); Carbon Dioxide 28 mmol/L (22-30); Chloride 99 mmol/L (98-107); Estimated CRCL calculation 63 ml/min; Estimated Glomerular Filt Rate > 60; Glucose 92 mg/dL (65-110); Magnesium 2.1 mg/dL (1.6-2.3); Sodium 131 mmol/L (137-145); Total Protein 5.9 g/dL (6.3-8.2)
[2025-03-03 08:00] VITALS: PULSE 69
[2025-03-03] MEDS: MULTIVITAMINS THERAPEUTIC TAB (*BKC) 1 TABLET PO (10:13)
[2025-03-03] MEDS: amLODIPine BESYLATE 5 MG TABLET PO (10:13)
[2025-03-03] MEDS: CHOLECALCIFEROL (VITAMIN D3) 25 MCG (1,000 UNITS) TABLET 50 MCG PO (10:13)
[2025-03-03 12:00] VITALS: PULSE 65
--- NOTE | 2025-03-03 12:10 | P.DS_ITS ---
DS: Admitting Diagnosis Discharge Date 03/03 Admitting Diagnosis low na DS: Discharge Diagnosis Discharge Diagnosis (1) Acute hyponatremia: Code(s): E87.1 - Hypo-osmolality and hyponatremia Status: Acute (2) Community acquired pneumonia: Code(s): J18.9 - Pneumonia, unspecified organism Status: Acute (3) Hypothyroidism (acquired): Code(s): E03.9 - Hypothyroidism, unspecified Status: Acute (4) Essential (primary) hypertension: Code(s): I10 - Essential (primary) hypertension Status: Acute (5) Impaired glucose metabolism: Code(s): R73.09 - Other abnormal glucose Status: Acute DS: Summary Hospital Course Hospital Course: This is an 79 year old female patient admitted to the hospital with hyponatremia in the setting of acute illness for the past week or so. Patient states she went to Urgent Care on 02/25/25 with complaints including sore throat, mild confusion, dizziness, nausea and dry mouth. Patient states the confusion was a completely new symptom for her at that time. Noted liver enzymes elevated, liver cyst on CT- discussed with pt- she will f/u with PCP for further work up, liver Patient does have history of borderline low sodium ranging from 132 to 137. Glucose mildly elevated so ER tested Hemoglobin A1c which resulted at 5.8. on iv antibiotics for possible pneumonia. Chest xray: IMPRESSION: 1. Small left pleural effusion. 2. Mild cardiomegaly. 3. Hyperexpansion lungs suggestive but not diagnostic of COPD. CHest CT: iMPRESSION: CHEST: 1. Left basilar atelectasis versus pneumonia with pleural effusion. 2. Minimal right basilar atelectasis versus pneumonia seen posteriorly. 3. Calcification in the right lobe of the thyroid gland. Ultrasound evaluation advised. 4. Trace of pericardial effusion. ABDOMEN/PELVIS: 1. No evidence of appendicitis, diverticulitis or intestinal obstruction. 2. Hepatic cysts unchanged. Mild hepatomegaly. 3. Mild left hydronephrotic changes unchanged from previous examination. Bilateral renal cysts. 4. Constipation. Constipation improved- pt had coupe of . # hyponatremia -Sodium 122 as outpatient yesterday, 128 on arrival to ER today -Episodes of confusion, dizziness, nausea, lightheadedness, dry mouth and intermittent fevers for about a week -Patient received 2 liters of IV normal saline and then placed on 125 mL/hr per ER provider -Urine sodium ordered off UA already in lab -Will repeat metabolic panel at 2200 -Mild hyperglycemia but sodium correction still works out to 129 -Caution against rapid correction, decreased IV fluid rate to 75 mL/hr -Regular diet ordered -Hemoglobin A1c added, previously 5.6, not on medication for glucose/diabetes -Monitor I+O carefully -Avoid excessive free water intake - NA is 131 today - will repeat in a week # -Right middle lobe and bi-basilar atelectasis vs pneumonia -Normal WBC, CRP mildly elevated at 3.2 -Rocephin/azithromycin started in ER, lung changes of emphysema noted on CT scan -Monitor respiratory status, oxygen as needed to keep sats >90 -Intermittent fevers recently -ablation IS Pt doesnot appear to have any resp issues at all. Will d/c antibiotics. # -Cardiomegaly noted on recent CXR, pleural effusion on left -Echocardiogram ordered -Continue home medications Echo: Summary 1. Complete two-dimensional, color flow and Doppler transthoracic echocardiogram is performed. 2. Left ventricular chamber dimension is normal. 3. Left ventricular systolic function is normal, estimated at 65-70. 4. There is mild concentric increased left ventricular wall thickness. 5. The left ventricular diastolic function is abnormal. 6. E/e' 15 is elevated. 7. Left atrial chamber dimension is mildly enlarged. 8. There is mild aortic valve sclerosis. 9. There is trace tricuspid valve regurgitation. 10. No pulmonary hypertension, estimated pulmonary arterial systolic pressure is 29 mmHg Status at Discharge Functional status at discharge: independent ambulation Overall status at discharge: patient is progressing back to baseline Time Spent with Patient Time attestation: Total time spent providing and/or coordinating discharge services: Time spent: Greater than 30 minutes Exam Narrative: GENERAL: Well appearing, well-nourished, non-toxic, in no acute distress. HEAD: Normocephalic, atraumatic. NECK: Supple. No adenopathy, no masses. RESPIRATORY: Airway patent, respirations nonlabored. Clear to auscultation bilaterally, no rales, rhonchi, wheezing. CARDIOVASCULAR: Regular rate and rhythm with murmur. No rubs or gallops. Peripheral pulses 2+ and equal bilaterally. ABDOMINAL: Soft, nontender, nondistended, no hepatosplenomegaly. Normoactive BS. MUSCULOSKELETAL: Moves all extremities. Strength/ROM intact without gross deformities. SKIN: Warm, dry, normal color. No rashes. NEURO: A&O X3. Speech clear. Cranial nerves II-XII intact. No ataxic movements. PSYCHIATRIC: Appropriate mood and affect. Normal interaction. Const: General: comfortable DS: Data Data Completed and Pending Completed studies during hospitalization: chest xray Labs on day of discharge: Labs from last 24 hours 03/03/25 05:31 WBC 6.1 RBC 3.74 L Hgb 10.6 L Hct 33.6 L MCV 89.8 MCH 28.3 MCHC 31.5 L RDW 14.1 Plt Count 264 MPV 8.9 Immature Gran % (Auto) 0.5 Neut % (Auto) 50.9 Lymph % (Auto) 29.0 [place] % (Auto) 10.6 H Eos % (Auto) 8.5 H Baso % (Auto) 0.5 Lymph # (Auto) 1.78 [place] # (Auto) 0.7 H Eos # (Auto) 0.5 H Baso # (Auto) 0.0 Abs Immat Gran (auto) 0.03 Absolute Neuts (auto) 3.1 Absolute Nucleated RBC 0.000 Nucleated RBC % 0.0 Sodium 131 L Potassium 4.0 Chloride 99 Carbon Dioxide 28 Anion Gap 4 BUN 11 Creatinine 0.54 L Estim Creat Clear Calc 63 Estimated GFR > 60 Glucose 92 Calcium 9.0 Phosphorus Cancelled Magnesium 2.1 Total Bilirubin 0.3 AST 55 H ALT 61 H Alkaline Phosphatase 174 H Total Protein 5.9 L Albumin 3.2 L Preliminary micro results at discharge 03/01/25 18:44 Blood Culture - Preliminary Blood 03/01/25 18:44 Blood Culture - Preliminary Blood Discharge Plan Discharge Attending physician on discharge: Devon Law Discharging Clinician: Ruth Elam Patient Disposition: Home Activity: january shower Diet: heart healthy Discharge Instructions: You were admitted for low sodium. It had been stabilized- it is still a bit on a lower side- but it is back at your baseline. Your urine culture was negative- so no UTI and i donot think you need any antibiotics for pneumonia as you donot have any respiratory symptoms. IF these change- please return to ed or f/u with pcp. A we discussed, your liver enzymes were a bit elevated. Please f/u with your OCP for further work up- like liver ultrasound and repeat blood work (we will send you lab order). Patient Instructions: Antibiotic Form Patient Language: [place] Stand Alone Forms: General Discharge Information Follow-up/Referrals: Jossue Atkinson MD [Primary Care Provider] - 2 Weeks Discharge Medications: Continued multivitamin Tablet 1 tablet PO DAILY calcium carbonate [Calcium 600] 600 mg calcium (1,500 mg) tablet 600 mg PO BID ICaps AREDS2 250 mg-200 unit -12.5 mg-1 mg capsule 1 cap PO DAILY ondansetron 4 mg tablet,disintegrating 4 mg PO Q8H PRN (Reason: nausea and vomiting) cholecalciferol (vitamin D3) 50 mcg (2,000 unit) tablet 50 mcg PO DAILY Qty: 90 3RF amlodipine 5 mg tablet 5 mg PO DAILY Qty: 90 1RF levothyroxine 50 mcg tablet 50 mcg PO DAILY Qty: 90 1RF Discontinued cephalexin 500 mg capsule 500 mg PO BID Other Ambulatory Orders: Comprehensive Metabolic Panel (Routine) Timeframe: 1 Week Location: Determined by Patient Ordered By: Ruth Elam Date of admission: 03/02/25 07:26 Primary Care Provider: Jossue Atkinson Admitting Provider: Devon Law Attending physician on admission: Devon Law Condition: Stable Quality VTE Prophylaxis VTE prophylaxis: pharmacologic ordered Hospitalist MIPS Heart Failure (Exclusion) Patient has history of Heart Transplant or Left Ventricular Assistive Device?: No IF YES, STOP HERE Heart Failure (Qualifier) Patient has current or prior documentation of LVEF less than or equal to 40%, or mod/servere depressed LVSF?: No IF NO, STOP HERE
--- NOTE | 2025-03-03 13:51 | PC.NURSE ---
On 03/03/25, the DOMESTIC MAID, [Inge Arias], provided care and completed [facility] documentation on this patient. I have reviewed the DOMESTIC MAID's documentation and agree with the findings.
== END 2025-03-03 13:46 | disposition home or self-care (01) | DRG 641 ==
LOC: ANHED 18:52 → ANH3MEDSUR 19:21
PROVIDERS: Nurse Practitioner; Admitting Provider Family Medicine; Emergency Provider Registered Nurse; PCP Family Medicine; Visit Provider Nurse Practitioner
DX: E87.1 Hypo-osmolality and hyponatremia (principal); E03.9 Hypothyroidism, unspecified; I10 Essential (primary) hypertension; R73.9 Hyperglycemia, unspecified; E78.5 Hyperlipidemia, unspecified; M81.0 Age-related osteoporosis without current pathological fracture; M19.90 Unspecified osteoarthritis, unspecified site; E86.0 Dehydration; Z90.710 Acquired absence of both cervix and uterus; I51.7 Cardiomegaly
CPT/HCPCS: 36415; 71260; 74177; 80048; 80053; 80069; 81001; 83036; 83605; 83735; 84300; 84443; 85025; 86140; 87040; 87637; 93306; 96361; 96365; 96367; 96375; 97161; 99285; A9270; G0378; J0456; J0696; J1650; J7030; Q9967

== ENCOUNTER 2025-03-13 10:25 | Outpatient (CLI) | payer MEDICARE, SELFPAY ==
--- OUTSIDE RECORDS SUMMARY | 2025-03-13 11:37 | XMS_ITS | Clinical Summary ---
Author Organization [facility] Address [address], [address] [address] Phone Care Team Providers Care Cloth Mercerizing Supervisor Name Role Phone Dinorah Atkinson MD Primary [...] 2024 SARS-COV-2 Immunization ( season) 2024 Colonoscopy Discontinued 11/03/2017 Colorectal Cancer Screening Discontinued Retired - Colonoscopy High Risk Discontinued 8 Cologuard Discontinued Hepatitis B Immunization Aged Out [...] Relevant to Health Maintenance Insurance MEDICARE C [facility] on file Care Teams Cloth Mercerizing Supervisor Relationship Specialty Start Date End Date Dinorah Atkinson MD PCP - General Family Medicine 11/08/17
[2025-03-13 19:48] LABS: Alanine Aminotransferase 34 U/L (6-35); Albumin Level 3.9 g/dL (3.5-5.1); Alkaline Phosphatase 110 U/L (38-126); Anion Gap 6 mmol/L (4-12); Aspartate Amino Transferase 38 U/L (14-36); Bilirubin,Total 0.4 mg/dL (0.2-1.3); Blood Urea Nitrogen 19 mg/dL (7-17); Calcium 9.4 mg/dL (8.4-10.2); Carbon Dioxide 27 mmol/L (22-30); Chloride 103 mmol/L (98-107); Estimated Glomerular Filt Rate > 60; Glucose 115 mg/dL (65-110); Potassium 4.1 mmol/L (3.4-5.0); Sodium 136 mmol/L (137-145); Total Protein 6.8 g/dL (6.3-8.2)
== END 2025-03-13 10:26 | disposition home or self-care (01) ==
LOC: ANHGOSHLAB 10:26
PROVIDERS: PCP Family Medicine; Visit Provider Nurse Practitioner
DX: E87.1 Hypo-osmolality and hyponatremia (principal); R74.8 Abnormal levels of other serum enzymes
CPT/HCPCS: 36415; 80053

== ENCOUNTER 2025-05-15 12:59 | Outpatient (CLI) | payer MEDICARE, SELFPAY ==
--- OUTSIDE RECORDS SUMMARY | 2025-05-15 13:10 | XMS_ITS | Clinical Summary ---
Author Organization [facility] Address [address], [address] [address] Phone Care Team Providers Care Occupational Therapist Rehab Manager Name Role Phone Dinorah Atkinson MD [...] Health Maintenance Due Date Last Done Comments Hepatitis C Virus (HCV) Screening 1945 TdaP Immunization 1945 Pneumococcal Immunization (5 0+ years) (1 of 1 - PCV) 1994 Zoster Immunization (1 of 2) 1994 Respiratory Syncytial Virus (RSV) Immunization (Adult) (1 - 1-dose 75+ series) 2019 SARS-COV-2 Immunization ( - 2023- season) 2024 Influenza Immunization (#1) 2025 Colonoscopy Discontinued 11/03/2017 Colorectal Cancer Screening Discontinued Cologuard Discontinued Hepatitis B Immunization Aged Out No longer eligible based on patient's age to complete this topic Human Papillomavirus (HPV) Immunization Aged Out No longer eligible b ased on patient's age to complete this topic [...] Relevant to Health Maintenance Insurance MEDICARE C [facility] on file Care Teams Occupational Therapist Rehab Manager Relationship Specialty Start Date End Date Dinorah Atkinson MD PCP - General Family Medicine 11/08/17
[2025-05-15 19:05] LABS: Hematocrit 38.6 % (37.0-47.0); Hemoglobin 11.9 g/dL (12.0-15.0); Immature Granulocyte Percent A 0.0 % (0-0.5); Lymphocytes Absolute Auto 1.43 K/mm3 (0.9-3.2); Mean Corpuscular HGB Conc 30.8 g/dl (32-36); Mean Corpuscular Hemoglobin 28.9 pg (26-34); Mean Corpuscular Volume 93.7 fl (80-100); Nucleated Red Blood Cells Absolute Auto 0.000 K/mm3 (0.0-0.012); Nucleated Red Blood Cells Perc 0.0 % (0.0-0.2); Platelet Count Result 226 k/mm3 (150-375); Red Blood Count 4.12 M/mm3 (4.2-5.4); White Blood Count 5.8 K/mm3 (4.5-10.0)
[2025-05-15 19:18] LABS: Alanine Aminotransferase 19 U/L (6-35); Albumin Level 4.1 g/dL (3.5-5.1); Alkaline Phosphatase 73 U/L (38-126); Anion Gap 5 mmol/L (4-12); Aspartate Amino Transferase 43 U/L (14-36); Bilirubin,Total 0.5 mg/dL (0.2-1.3); Blood Urea Nitrogen 17 mg/dL (7-17); Calcium 9.7 mg/dL (8.4-10.2); Carbon Dioxide 30 mmol/L (22-30); Chloride 101 mmol/L (98-107); Estimated Glomerular Filt Rate > 60; Glucose 107 mg/dL (65-110); Potassium 4.3 mmol/L (3.4-5.0); Sodium 136 mmol/L (137-145); Total Protein 7.0 g/dL (6.3-8.2)
[2025-05-15 19:20] LABS: Iron 98 ug/dL (37-170)
[2025-05-15 19:31] LABS: Percent Iron Saturation 26 % (20-50)
[2025-05-15 19:57] LABS: Thyroid Stimulating Hormone Reflex 3.160 uIU/mL (0.465-4.68)
[2025-05-15 20:02] LABS: Ferritin 9.57 ng/mL (11.1-264)
== END 2025-05-15 13:00 | disposition home or self-care (01) ==
LOC: ANHGOSHLAB 13:00
PROVIDERS: PCP Family Medicine; Visit Provider Family Medicine
DX: E03.9 Hypothyroidism, unspecified (principal); I10 Essential (primary) hypertension; D64.9 Anemia, unspecified
CPT/HCPCS: 36415; 80053; 82728; 83540; 83550; 84443; 85025